=== PATIENT | male | born 1995 | race Caucasian/White ===

== ENCOUNTER 2016-09-12 16:00 | Inpatient (IN) | payer MEDICAID, OTHER ==
[~2016-09-12] VITALS: Ht 175.3 cm; Wt 106.1 kg
[~2016-09-12 16:00] MED LIST: ABIL15TA PO; SERT-141 PO; TRIL600T PO; VITA500047 PO
[2016-09-12 17:34] LABS: ALBUMIN 4.2 GM/DL (3.2-5.2); ALBUMIN/GLOBULIN RATIO 1.05 (1.00-1.93); ALKALINE PHOSPHATASE 184 U/L (45-117); ALT/SGPT 26 U/L (12-78); ANION GAP 12 MEQ/L (8-16); AST/SGOT 22 U/L (15-37); BILIRUBIN,DIRECT < 0.1 MG/DL (0.0-0.2); BILIRUBIN,TOTAL 0.2 MG/DL (0.2-1.0); BLOOD UREA NITROGEN 21 MG/DL (7-18); CALCIUM LEVEL 9.2 MG/DL (8.5-10.1); CARBON DIOXIDE LEVEL 26 MEQ/L (21-32); CHLORIDE LEVEL 102 MEQ/L (98-107); CREATININE FOR GFR 0.78 MG/DL (0.70-1.30); GLOMERULAR FILTRATION RATE > 60.0 (>60); GLUCOSE, FASTING 95 MG/DL (70-105); POTASSIUM SERUM 3.9 MEQ/L (3.5-5.1); SODIUM LEVEL 140 MEQ/L (136-145); TOTAL PROTEIN 8.2 GM/DL (6.4-8.2)
[2016-09-12 17:40] LABS: MEAN CORPUSCULAR VOLUME 81.9 fl (80.0-96.0); RED CELL DISTRIBUTION WIDTH 14.5 % (11.5-14.5); WHITE BLOOD COUNT 7.6 K/mm3 (4.0-10.0)
[2016-09-12 18:44] LABS: AMPHETAMINES LEVEL URINE NEGATIVE (NEGATIVE); BENZODIAZEPINES URINE NEGATIVE (NEGATIVE); COCAINE METABOLITE URINE NEGATIVE (NEGATIVE); CONTROL LINE INT CTR LINE PRESENT; METHADONE URINE NEGATIVE (NEGATIVE); OPIATES URINE NEGATIVE (NEGATIVE); TRICYCLIC ANTIDEPRESS URINE NEGATIVE (NEGATIVE)
[2016-09-12] MEDS ORDERED: TRIL1TAB PO (20:21)
[2016-09-12] MEDS ORDERED: ABIL15TA2 PO (20:21)
[2016-09-12] MEDS ORDERED: ZOLO50TA PO (20:21)
--- NOTE | 2016-09-12 21:45 | EDDOCDS ---
Nurse's Notes [facility] Name: Efrain Bell Age: 20 yrs Sex: Male : 1995 Arrival Date: 09/12/2016 Time: 16:[address] MD: Diagnosis: Major depressive disorder, recurrent, moderate;Suicidal ideations Presentation: 09/12 16:18 Presenting complaint: Patient states: brought in by PD on last picker order - had an pml argument with his girlfriend over a laptop and held a knife to his wrist and was punching himself. threw knife across room with PD arrived (away from officers). denies SI now. Mental Health Triage Level: Level 2: The patient displays active suicidal ideations. The patient was brought to the ED for evaluation because of a legal pickup order. Adult Sepsis Screening: The patient does not have new or worsening altered mentation. Patient's respiratory rate is less than 22. Systolic blood pressure is greater than 100. Patient has a qSOFA score of 0- Negative Sepsis Screen. Mental Health Triage Level: Level 2: The patient displays active suicidal ideations. The patient was brought to the ED for evaluation because of a legal pickup order. Suicide/Homicide risk assessment- The patient admits to and/or has been reported to be having suicidal ideations. The patient reports that he/she has not been admitted to an inpatient mental health facility in the last 30 days. The patient reports that he/she does not have a recent or current history of substance abuse. The patient reports that he/she has no prior history of suicide attempt and/or organized plan. The patient reports that he/she has not experienced a significant life altering event in the last 30 days. The patient reports that he/she has adequate social support. The patient reports he/she has no significant chronic medical condition(s). 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 Transition of care: patient was not received from another setting of care. 16:18 Acuity: ANGELO Level 3 pml 16:18 Method Of Arrival: Walkin/Carried/Asstd pml Triage Assessment: 16:21 General: Appears in no apparent distress, comfortable, Behavior is appropriate for age, pml cooperative. Pain: Denies pain. HIV screening NA for this visit Offered previously. The patient is triaged at the bedside. See Assessment in Nurses Notes section of ED record. Neurological: Level of Consciousness is awake, alert, Oriented to person, place, time. Cardiovascular: Capillary refill < 3 seconds. Respiratory: Airway is patent Respiratory effort is even, unlabored. GI: Abdomen is non- distended obese. Derm: Skin is pink, warm & dry. Historical: - Allergies: no known allergies; - Home Meds: 1. Abilify 15 mg Oral tab 1 tab nightly 2. Trileptal oral 450mg oral 2 times per day 3. Zoloft 50 mg Oral tab 1 tab once daily - PMHx: Anxiety; Depression; mood disorder; - PSHx: none; - Social history: Smoking status: Patient states was never smoker of tobacco. No barriers to communication noted, The patient speaks fluent Greenlandic, Speaks appropriately for age. - Family history: Not pertinent. - : The pt / caregiver states he / she is not on anticoagulants. Home medication list is obtained from the patient. - Exposure Risk Screening:: None identified. Screenin:56 Screening information is obtained from the patient. Fall risk: No risks identified. pml Assistance ADL's: requires no assistance with activities of daily living. Abuse/DV Screen: The patient / caregiver reports he/she is: not in a situation that causes fear, pain or injury. Nutritional screening: No deficits noted. Advance Directives: Currently, there is no health care proxy. home support is adequate. Assessment: 16:56 General: Appears in no apparent distress, comfortable, Behavior is appropriate for age, pml cooperative. Pain: Denies pain. Neurological: Level of Consciousness is awake, alert, Oriented to person, place, time. Cardiovascular: Capillary refill < 3 seconds. Respiratory: Airway is patent Respiratory effort is even, unlabored. Derm: Skin is pink, warm & dry. 18:37 General: Resting on stretcher, resps easy and unlabored, skin p/w/d. pml 19:04 General: Verbal report given by Angella Umaña RN. Assumed care of patient at this time.. kas2 19:30 General: Appears in no apparent distress, comfortable, Behavior is appropriate for age, kas2 cooperative. Pain: Denies pain. Neurological: Level of Consciousness is awake, alert, Oriented to person, place, time. Cardiovascular: Capillary refill < 3 seconds Rhythm is regular. Respiratory: Airway is patent Respiratory effort is even, unlabored, Breath sounds are clear. Derm: Skin is intact, Skin is dry, Skin is pink, warm & dry. Skin temperature is warm. Mental Health Eval: 18:55 Mental health consult is initiated at 18:55. Status: The patient is not a cs seafood and service meat manager or dependent. [facility] Behavioral Health: The patient is not an established patient of [facility] Behavioral Health. Referral Information: Evaluation referral is generated by a police agency: [facility] Tavo Rader, #[id number] on a 9:41. The patient was referred for evaluation because Pt reports he was upset today arguing about weather to sell the lap top or not, with his GF of 3 years Zainab Davidson [phone], and became upset, they were walking outside, he threatened to kill himself, was crying, he pulled his pocket knife out, held it to his arm, then threw the knife in the snow bank. Zainab was afraid he was going to kill himself, her cousin called 911. Pt reports he has been very anxious and not sleeping at all, no change in eating at this time. Pt denies any illegal drug. 19:09 Referral Information: The patient was referred for evaluation because Pt reports he is cs very anxious, became angry, just came into his head to kill himself, stressors are no money, no more food stamps, and getting his GF to work, needs to sell the computer for clothing, is compliant with his medications and treatment, denies drug use, may have some in his system, lab show negative for cannabis, denies AH, or any thoughts of wanting to kill someone. Subjective: The patients chief complaint is Pt presented on a 9:41 depressed, threatening to kill himself with his pocket knife today on his arm, then threw it into the snow bank so he would not do it, per GF. Pt reports anxiety, depression, frustration, poor sleep habits at this time, sees his therapist every 3 weeks and PA at [facility] Sil Chavez every 2 months, GF confirms . Delusions are denied. Patient's mood is anxious, depressed, hopeless, Hallucinations are denied. Mental Health history: anxiety, Conduct Disorder, depression, sleep disturbance, suicide ideation Pt reports he has never made an attempt, "always has thoughts, last time was 1 year ago Mental Health Admissions: [facility] 09/22/13 Current Outpatient Mental Health Services: Psychiatrist / Agency: none sees NEVILLE Chavez at [facility]. Therapist / Agency: Luis DIAZ. Current living environment is Family / Home Support: Father, mother GF and his sister The patient is single. Patient presents to Emergency Department with the following symptoms within the past 2 weeks: agitation, anxiety, depressed mood, feelings of helplessness/hopelessness, poor concentration, poor impulse control, relational problem, sleep disturbance - insomnia, suicidal ideation with attempt/gesture by cutting. Substance abuse: Pt denies. Mental status exam: Patients appearance is disheveled Patient's behavior is agitated, Speech is mumbled. pressured. Affect is blunted flat. tearful, anxiuos. Mood is anxious. depressed. fearful. Hallucinations are denied. Appetite is normal. Memory is poor. Energy level is tires easily. Content of thought is normal. Thought process is intact. Cognitive level is oriented to person, place, time and situation Patient's insight is poor. Judgement is poor. Rapport with interviewer is good. Suicidal Ideation present with a plan to kill self by cutting. Homicidal ideation is not present. Disposition: Medically cleared for disposition by Matias Maki MD Psychiatric Consult is performed by phone with Dr Adriana Greene. [facility] Admission Criteria: The patient is experiencing suicidal ideation. The patient requires continuous observation and/or control to protect self, others or property. The patient's care requires a multi-modal treatment plan under close supervision and coordination due to the complexity and severity of the patient's symptoms. The patient requires administration and monitoring of psychoactive medications by skilled medical providers due to the side effects of the psychoactive medications or significant dosage adjustments. Legal Status: Patient's legal status will be Emergency admission: . [place] Safe Act: [place] Safe Act is applicable to this patient. The patient poses a risk to self or other and the Nursing State Wildlife Officer has been notified. He/She will enter the patient's data. DSM-V Differential Diagnosis: Unspecified Depressive Disorder (F32.9). Insurance Pre-Certification: Not Required. Pt states preferred pharmacy is: [facility] in [facility]. Vital Signs: 16:21 Weight 104.33 kg; Height 5 ft. 9 in. (175.26 cm); Pain 0/10; pml 17:13 BP 153 / 91; Pulse 108; Resp 18; Temp 96.9(T); Pulse Ox 100% on R/A; pjf 21:30 BP 152 / 93; Pulse 89; Resp 20; Temp 97.4; Pulse Ox 98% ; Pain 0/10; mas 16:21 Body Mass Index 33.96 (104.33 kg, 175.26 cm) [facility] Vitals: 16:21 Log In time N/A- police car arrival. [facility] ED Course: 16:02 Patient visited by Sharon Koenig PCA. elp 16:02 Tavo Cantor, RN is Primary Nurse. elp 16:02 Angella Umaña,MUNDO is Primary Nurse. elp 16:02 Patient moved to Waiting elp 16:02 Patient moved to [facility] elp 16:04 Nikky Salas MD is Attending Physician. sd1 16:04 Patient visited by Nikky Salas MD. sd1 16:16 Attending Physician role handed off by Nikky Salas MD cs11 16:16 Bentley Polo DO is Attending Physician. cs11 16:19 Triage Initiated pml 16:20 Patient visited by Stoney Boykin Security Aide. pjf 16:22 Patient visited by Angella Umaña,MUNDO. pml 16:22 Pt greeted and oriented to ED. Patient advised of names of staff involved in care, pjf location of call jaramillo, wait times and NPO status. Accompanied by Law Enforcement, [facility] (9.41), Patient has correct armband on for positive identification. Placed in psych safe attire. Bed in low position. Call light in reach. Side rails up X 1. Security observing. Property removed, secured in belongings bag- Placed in locker #2. Door closed. Noise minimized. Visitors limited. Report received from rn - psych. triage level #2,+si, cooperative \\T\\ this time. The patient / caregiver is instructed regarding the plan of care and ED course. Psych Safety Check: Location: Psych Room. 16:49 [facility] Payment Agreement was scanned into [employer] and attached to record. zo 16:52 Patient visited by Stoney Boykin Security Aide. pjf 16:56 No IV's were initiated during this patient's visit. No procedures done that require pml assistance. Labs drawn. (by ED staff). Sent per order to lab. 17:11 Patient visited by Stoney Boykin Security Aide. pjf 17:14 Patient visited by Stoney Boykin Security Aide. pjf 17:41 Patient visited by Angella Umaña RN. pml 17:57 Patient visited by Angella Umaña,MUNDO. pml 18:10 Patient visited by Stoney Boykin Security Aide. pjf 18:29 Patient visited by Stoney Boykin Security Aide. pjf 18:29 Primary Nurse role handed off by Tavo Cantor RN mcp 18:37 Patient visited by Angella Umaña RN. pml 18:45 Patient visited by Stoney Boykin Security Aide. pjf 18:54 [facility] Legal paperwork was scanned into [employer] and attached to record. cs 19:00 Patient visited by Stoney Boykin Security Aide. pjf 19:04 Patient visited by Sil Manuel RN. kas2 19:09 [facility] Legal paperwork was scanned into [employer] and attached to record. cs 19:13 Patient visited by Stoney Boykin Security Aide. pjf 19:22 Attending Physician role handed off by Bentley Polo DO pc 19:22 Matias Maki MD is Attending Physician. pc 19:23 Adriana Greene is Hospitalizing Provider. pc 19:27 Patient visited by Stoney Boykin Security Aide. pjf 19:51 Patient visited by Valeriano Mora. mas 20:05 Patient visited by Valeriano Mora. mas 20:19 Patient visited by Valeriano Mora. mas 20:30 Patient visited by Valeriano Mora. mas 20:56 Patient visited by Adan Ingram PCA. jmv 21:00 Patient visited by Adan Ingram PCA. jmv 21:15 Patient visited by Valeriano Mora. mas 21:16 Patient visited by Sil Manuel RN. kas2 21:40 Primary Nurse role handed off by Angella Umaña RN eduard Attachments: 18:54 [facility] Legal paperwork cs 19:09 M[facility] Legal paperwork cs Order Results: Lab Order: Acetaminophen Level; SPEC'M 09/12/16 16:49 Test: ACETAMINOPHEN LEVEL; Value: < 2.0; Range: 10.0-30.0; Abnormal: Below low normal; Units: UG/ML; Status: F Lab Order: Basic Metabolic Profile; [facility]09/12/16 16:49 Test: GLUCOSE, FASTING; Value: 95; Range: 70-105; Units: MG/DL; Status: F Test: BLOOD UREA NITROGEN; Value: 21; Range: 7-18; Abnormal: Above high normal; Units: MG/DL; Status: F Test: CREATININE FOR GFR; Value: 0.78; Range: 0.70-1.30; Units: MG/DL; Status: F Test: GLOMERULAR FILTRATION RATE; Value: > 60.0; Range: >60; Status: F Test: SODIUM LEVEL; Value: 140; Range: 136-145; Units: MEQ/L; Status: F Test: POTASSIUM SERUM; Value: 3.9; Range: 3.5-5.1; Units: MEQ/L; Status: F Test: CHLORIDE LEVEL; Value: 102; Range: 98-107; Units: MEQ/L; Status: F Test: CARBON DIOXIDE LEVEL; Value: 26; Range: 21-32; Units: MEQ/L; Status: F Test: ANION GAP; Value: 12; Range: 8-16; Units: MEQ/L; Status: F Test: CALCIUM LEVEL; Value: 9.2; Range: 8.5-10.1; Units: MG/DL; Status: F Test Note: ; Units are mL/min/1.73 m2 Chronic Kidney Disease Staging per NKF: Stage I & II GFR >=60 Normal to Mildly Decreased Stage III GFR 30-59 Moderately Decreased Stage IV GFR 15-29 Severely Decreased Stage V GFR <15 Very Little GFR Left ESRD GFR <15 on SPONGE BUFFER Lab Order: Complete Blood Count; [facility]09/12/16 16:49 Test: WHITE BLOOD COUNT; Value: 7.6; Range: 4.0-10.0; Units: K/mm3; Status: F Test: RED BLOOD COUNT; Value: 5.09; Range: 4.30-6.10; Units: M/mm3; Status: F Test: HEMOGLOBIN; Value: 13.7; Range: 14.0-18.0; Abnormal: Below low normal; Units: g/dl; Status: F Test: HEMATOCRIT; Value: 41.7; Range: 42.0-52.0; Abnormal: Below low normal; Units: %; Status: F Test: MEAN CORPUSCULAR VOLUME; Value: 81.9; Range: 80.0-96.0; Units: fl; Status: F Test: MEAN CORPUSCULAR HEMOGLOBIN; Value: 27.0; Range: 27.0-33.0; Units: pg; Status: F Test: MEAN CORPUSCULAR HGB CONC; Value: 33.0; Range: 32.0-36.5; Units: g/dl; Status: F Test: RED CELL DISTRIBUTION WIDTH; Value: 14.5; Range: 11.5-14.5; Units: %; Status: F Test: PLATELET COUNT, AUTOMATED; Value: 231; Range: 150-450; Units: k/mm3; Status: F Lab Order: Drug Eval Toxicology ED Only; SPEC'M 09/12/16 18:26 Test: AMPHETAMINES LEVEL URINE; Value: NEGATIVE; Range: NEGATIVE; Status: F Test: BARBITURATES URINE; Value: NEGATIVE; Range: NEGATIVE; Status: F Test: BENZODIAZEPINES URINE; Value: NEGATIVE; Range: NEGATIVE; Status: F Test: CANNABINOIDS URINE; Value: NEGATIVE; Range: NEGATIVE; Status: F Test: COCAINE METABOLITE URINE; Value: NEGATIVE; Range: NEGATIVE; Status: F Test: METHADONE URINE; Value: NEGATIVE; Range: NEGATIVE; Status: F Test: OPIATES URINE; Value: NEGATIVE; Range: NEGATIVE; Status: F Test: TRICYCLIC ANTIDEPRESS URINE; Value: NEGATIVE; Range: NEGATIVE; Status: F Test Note: ; ALL PRESUMPTIVE POSITIVE FINDINGS ARE UNCONFIRMED NORMAL VALUES THRESHOLD IN NG/ML AMPHETAMINES 1000 METHAMPHETAMINES 1000 BARBITURATES 300 BENZODIAZEPINES 300 CANNABINOIDS (THC) 50 COCAINE METABOLITE 300 METHADONE 300 OPIATES 300 PHENCYCLIDINE 25 TRICYCLIC ANTIDEPRESSANTS 1000 RESULTS ARE FOR MEDICAL PURPOSES ONLY. ALL URINE SPECIMENS WILL BE SAVED FOR 3 DAYS. IF CONFIRMATION OF A PRESUMPTIVE POSTIVE SCREEN RESULT IS DESIRED, CALL CHEMISTRY ([phone]) AND REQUEST URINE TO BE SENT TO REFERENCE LAB. FOR A LIST OF CLOSELY RELATED COMPOUNDS PLEASE CALL THE LAB. Lab Order: Ethyl Alcohol (ethanol); SPEC'M 09/12/16 16:49 Test: ETHYL ALCOHOL (ETHANOL); Value: < 0.003; Range: 0.000-0.010; Units: %; Status: F Lab Order: Liver Profile; SPEC'M 09/12/16 16:49 Test: AST/SGOT; Value: 22; Range: 15-37; Units: U/L; Status: F Test: ALT/SGPT; Value: 26; Range: 12-78; Units: U/L; Status: F Test: ALKALINE PHOSPHATASE; Value: 184; Range: 45-117; Abnormal: Above high normal; Units: U/L; Status: F Test: BILIRUBIN,TOTAL; Value: 0.2; Range: 0.2-1.0; Units: MG/DL; Status: F Test: BILIRUBIN,DIRECT; Value: < 0.1; Range: 0.0-0.2; Units: MG/DL; Status: F Test: TOTAL PROTEIN; Value: 8.2; Range: 6.4-8.2; Units: GM/DL; Status: F Test: ALBUMIN; Value: 4.2; Range: 3.2-5.2; Units: GM/DL; Status: F Test: ALBUMIN/GLOBULIN RATIO; Value: 1.05; Range: 1.00-1.93; Status: F Lab Order: Salicylate Level; SPEC'M 09/12/16 16:49 Test: SALICYLATE LEVEL; Value: 2.0; Range: 5.0-30.0; Abnormal: Below low normal; Units: MG/DL; Status: F Lab Order: Thyroid Stimulating Hormone; SPEC'M 09/12/16 16:49 Test: THYROID STIMULATING HORMONE; Value: 1.440; Range: 0.358-3.740; Units: uIU/ML; Status: F Outcome: 19:24 Decision to Hospitalize by Provider. pc 21:44 Patient left the ED. sls1 Signatures: Matias Maki MD MD pc Delaney-Rowland, Sarah, MD MD sd1 Lynn Isabel RN RN Guerrero Osorio PSA PSA Stoney Steiner Security Aide Securpjf Olin, Zoeann zo Spaulding, Marcus mas Ewald, Destiny, SENIOR PRODUCT INTEGRITY ENGINEER SENIOR PRODUCT INTEGRITY ENGINEER Armida Sahu RN RN sls1 Angella Umaña RN RN pml Schiff, Craig, DO DO cs11 Sharon Koenig SENIOR PRODUCT INTEGRITY ENGINEER SENIOR PRODUCT INTEGRITY ENGINEER elp Sil Manuel,RN RN kas2 Adan Ingram, SENIOR PRODUCT INTEGRITY ENGINEER SENIOR PRODUCT INTEGRITY ENGINEER jmv MTDD
--- NOTE | 2016-09-12 21:45 | EDDOCDS ---
Physician Documentation [facility] Name: Efrain Bell Age: 20 yrs Sex: Male : 1995 Arrival Date: 09/12/2016 Time: 16:00 Bed U2 Private MD: Disposition: 09/12 19:22 Critical Care: Critical care not applicable. pc Disposition: 09/12/16 19:24 Hospitalization ordered by Adriana Greene for Inpatient Admission. Preliminary diagnosis are Major depressive disorder, recurrent, moderate, Suicidal ideations. - Bed requested for Admit. - Status is Inpatient Admission. sls1 - Condition is Stable. - Problem is new. - Symptoms are unchanged. Historical: - Allergies: no known allergies; - Home Meds: 1. Abilify 15 mg Oral tab 1 tab nightly 2. Trileptal oral 450mg oral 2 times per day 3. Zoloft 50 mg Oral tab 1 tab once daily - PMHx: Anxiety; Depression; mood disorder; - PSHx: none; - Social history: Smoking status: Patient states was never smoker of tobacco. No barriers to communication noted, The patient speaks fluent [place], Speaks appropriately for age. - Family history: Not pertinent. - : The pt / caregiver states he / she is not on anticoagulants. Home medication list is obtained from the patient. - Exposure Risk Screening:: None identified. Vital Signs: 16:21 Weight 104.33 kg / 230.01 lbs; Height 5 ft. 9 in. (175.26 cm); Pain 0/10; pml 17:13 BP 153 / 91; Pulse 108; Resp 18; Temp 96.9(T); Pulse Ox 100% on R/A; pjf 21:30 BP 152 / 93; Pulse 89; Resp 20; Temp 97.4; Pulse Ox 98% ; Pain 0/10; mas 16:21 Body Mass Index 33.96 (104.33 kg, 175.26 cm) pml MDM: 16:05 Consult PFS/PSA/Oncology Technician ordered. sd1 16:05 Consult PFS/PSA/Oncology Technician: Patient's case requires discussion with on-call sd1 Psychiatrist ordered. 16:05 PSA/PFS to call Nursing Legal Support Manager, to enter patient data on [place] Safe Act if patient sd1 involuntarily admitted or transferred for SI or HI ordered. 16:05 Confirm accurate psychiatric medication list and times of last dosage ordered. sd1 16:05 Detain Pt Until Medically/PFS Cleared ordered. sd1 16:06 Acetaminophen Level Ordered. EDMS 16:06 Basic Metabolic Profile Ordered. EDMS 16:06 Complete Blood Count Ordered. EDMS 16:06 Drug Eval Toxicology ED Only Ordered. EDMS 16:06 Ethyl Alcohol (ethanol) Ordered. EDMS 16:06 Liver Profile Ordered. EDMS 16:06 Salicylate Level Ordered. EDMS 16:06 Thyroid Stimulating Hormone Ordered. EDMS 16:42 Financial registration complete. zo 16:49 [facility] Payment Agreement was scanned into [email or web address] and attached to record. zo 16:58 REGULAR DIET PLASTIC COOK+DIET ordered. EDMS 18:54 MHE Legal paperwork was scanned into [email or web address] and attached to record. cs 19:01 Admit to [facility]: ordered. EDMS 19:09 M[facility] Legal paperwork was scanned into [email or web address] and attached to record. cs 19:21 Consult PFS/PSA/Oncology Technician: Patient's case requires discussion with on-call cl Psychiatrist complete. 19:21 Consult PFS/PSA/Oncology Technician complete. cl 19:22 PSA/PFS to call Nursing Legal Support Manager, to enter patient data on [place] Safe Act if patient cl involuntarily admitted or transferred for SI or HI complete. 19:22 Acetaminophen Level Reviewed. pc 19:22 Basic Metabolic Profile Reviewed. pc 19:22 Complete Blood Count Reviewed. pc 19:22 Liver Profile Reviewed. pc 19:22 Salicylate Level Reviewed. pc 19:22 Drug Eval Toxicology ED Only Reviewed. pc 19:22 Ethyl Alcohol (ethanol) Reviewed. pc 19:22 Thyroid Stimulating Hormone Reviewed. pc 19:22 [place] Safe Act reporting: The patient poses a significant risk to self or others, and pc PSA/PFS has notified the Nursing Legal Support Manager and he/she will complete the required sql database programmer. The patient has been re-examined and re-evaluated. There is no appreciated change of the patient's symptoms at this time. Disposition: The historical points, examination findings, and any diagnostic results supporting the provided diagnosis, were discussed with the patient or legal guardian. The need for further work-up and/or treatment in the hospital was explained. Signatures: Dispatcher [employer] EDMS Matias Maki MD MD pc Delaney-Rowland, Sarah, MD MD sd1 Alexander Scott, PSA PSA cl Guerrero Tamez, PSA PSA cs Quique Tesfaye Shannon, RN RN sls1 Angella Umaña RN RN pml The chart was reviewed and I authenticate all verbal orders and agree with the evaluation and treatment provided.Attachments: 16:49 [facility] Payment Agreement zo MTDD
[2016-09-12 21:50] VITALS: BP 143/88
[2016-09-12] MEDS ORDERED: MAALOX 30 ML SUSP *UDC PO PRN (22:45)
[2016-09-12] MEDS ORDERED: traZODone 50 MG TAB PO PRN (22:45)
[2016-09-12] MEDS ORDERED: ACETAMINOPHEN TAB 650MG DOSE (2X325MG) PO PRN (22:45)
[2016-09-12] MEDS ORDERED: MOM 30ML SUSPENSION UDC PO PRN (22:45)
[2016-09-12] MEDS ORDERED: LORazepam 1 MG TAB PO PRN (23:00)
[2016-09-13 06:42] VITALS: BP 156/80
[2016-09-13] MEDS: SERTRALINE HCL 50 MG TAB PO SCH (08:07)
[2016-09-13] MEDS: OXcarbazepine 150 MG TAB PO SCH ×2 (08:07→20:59)
[2016-09-13 10:02] VITALS: BP 157/87
--- NOTE | 2016-09-13 12:17 | HPEPDOC ---
Medical History and Physical Date of Admission Sep 12, 2016 at 21:45 History and Physical PCP: None ATTENDING: Dr. Tavo Cunningham HPI: 20yoM admitted to [facility] for unspecified depressive disorder, being medically examined today. Pt has erythema surrounding his upper and lower eyelids bilaterally. he has been rubbing his eyes alot. he notes some itching of his eyes. He states what started it was that he was crying alot. He states mild warmth surrounding the eyes, clear drainage, no significant pain or swelling. Denies any fevers, chills, weakness, fatigue, [place], CP, SOB, cough, palpitations, abdominal pain, N/V/D or changes in bowel or bladder habits. PMHx: learning disability (states he graduated HS) Strabismus Left eye anxiety depression Mood disorder h/o Fe deficiency anemia PSHX: denies SOCHX: Resides in: [place], lives with mother Marital Status: single Kids: none Employment: unemployed Tobacco use: denies ETOH: denies Illicit Drugs: has used marijuana IV Drug Use: Denies Tattoos done unprofessionally: Denies FAMHX: Mother: Alive, well Father: Alive, h/o esophageal Ca Siblings: Alive, well Children: none Unexpected deaths due to medical reasons: None. ROS: As noted in HPI, otherwise 11pt ROS of systems reviewed and unremarkable. PE: GEN: 20yoF, appears stated age. Well-nourished, well developed. No acute distress. Alert and oriented x 3. Pleasant, interactive. HEENT: Normocephalic, atraumatic. There is mild warmth of the skin surrounding the eyes upper and lower b/l and the upper and lower eyelids with mild edema, mild TTP. clear drainage noted from the eyes. Mild TTP. Pupils are equal, round , and reactive to light. Extraocular movements are intact. No nystagmus appreciated. Sclera are nonicteric. Conjunctiva without injection. Nose midline. Nasal turbinates without bogginess. EACs both patent BL. TMs both visualized and [place] with good cone of light, no bulging or erythema. No facial asymmetry. Moist mucous membranes. Dentition fair. Pharynx pink and moist, no cobblestoning. Neck supple, trachea midline. No lymphadenopathy or thyromegaly appreciated. CHEST: Regular rate and rhythm, +S1, +S2 LUNGS: Clear to auscultation bilaterally. No wheezes, rales, or rhonchi. Breathing appears symmetric and easy. Patient is speaking in full sentences. No accessory muscle use. ABD: Round, soft, non-tender, non-distended. +Bowel sounds throughout. No rebound or guarding. No costovertebral angle tenderness. EXT: Pulses 2+ bilaterally dorsalis pedis and radial. No lower extremity edema appreciated. SKIN: [place], dry, warm. Capillary refill <2sec. No rashes. NEURO: Alert and oriented x 3. Cranial nerves III-XII are intact. No focal deficits appreciated. EKG: pending. A&P: 20yoM admitted to [facility] for unspecified depressive disorder 1. Psych. Plan per Psychiatry. Obtain baseline EKG to assure the safety of psychiatric medications as they can prolong the QT interval. 2. H/O Fe def anemia. Will recheck CBC in AM. Check Fe studies, B12/folate. 3. H/O Strabismus left eye. 4. Follow up. No Primary Care Provider. Will attempt to establish PCP on discharge. 5. Elevated BP. Low Na diet. Monitor trend. 6. Cellulitis- periorbital- Pt states he has been rubbing his eyes bilaterally and appears to have mild cellulitis b/l. Will initiate doxycycline 100mg po bid x 7 days. Monitor. Encouraged pt to stop rubbing and frequently touching his eyes. Eye and lid hygiene discussed. 7. Staff member present throughout exam, mack Hammond. Vital Signs Vital Signs Label Value Date Time Patient Temperature 97.8 degrees F 09/13/16 1002 Temperature Source Tympanic 09/13/16 1002 Pulse 104 09/13/16 1002 Respiratory Rate 18 bpm 09/13/16 0642 Blood Pressure Assessment 156/80 (105) 09/13/16 0642 Blood Pressure Assessment 157/87 (110) 09/13/16 1002 Laboratory Data Labs 24H Laboratory Tests 2 09/12/16 16:49: Acetaminophen Level < 2.0L, Aspartate Amino Transf (AST/SGOT) 22, Alanine Aminotransferase (ALT/SGPT) 26, Alkaline Phosphatase 184H, Total Bilirubin 0.2, Direct Bilirubin < 0.1, Albumin 4.2, Albumin/Globulin Ratio 1.05, Anion Gap 12, Calcium Level 9.2, Ethyl Alcohol Level < 0.003, Glomerular Filtration Rate > 60.0, Salicylates Level 2.0L, Thyroid Stimulating Hormone (TSH) 1.440, Total Protein 8.2 09/12/16 18:26: Urine Amphetamine Level NEGATIVE, Urine Benzodiazepines Screen NEGATIVE, Urine Cannabinoids NEGATIVE, Urine Cocaine Metabolite NEGATIVE, Urine Opiates Screen NEGATIVE, Urine Barbiturates, Qualitative NEGATIVE, Urine Methadone Screen NEGATIVE, Urine Tricyclic Antidepressants NEGATIVE CBC/BMP Laboratory Tests 09/12/16 16:49 Red Blood Count 5.09, Mean Corpuscular Volume 81.9, Mean Corpuscular Hemoglobin 27.0, Mean Corpuscular Hemoglobin Concent 33.0, Red Cell Distribution Width 14.5 Home Medications Scheduled Aripiprazole (Abilify) 15 Mg Tab 15 MG PO QHS Oxcarbazepine (Trileptal) 300 Mg Tab 450 MG PO BID Sertraline Hcl (Zoloft) 50 Mg Tab 50 MG PO DAILY Allergies Coded Allergies: No Known Allergies (Verified Allergy, Unknown, 12/10/04) Abby Chavez Sep 13, 2016 12:17
[2016-09-13 12:39] VITALS: BP 140/80
[2016-09-13] MEDS: DOXYCYCLINE HYCLATE 100 MG TAB PO SCH ×2 (13:05→20:59)
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
[2016-09-13] MEDS ORDERED: hydrOXYzine 50 MG TAB PO PRN (13:30)
--- NOTE | 2016-09-13 16:45 | ECGEPIP ---
Stationary ECG Study [facility] Test Date: 2016-09-13 Pat Name: JORDON ROQUE Department: Room: [place] [address] Gender: M Saw Repairer: BLAKE : 1995 Requested By: Abby Chavez Order Number: [id number] Reading MD: Angela Gonzalez Measurements Intervals [place] Rate: 99 P: 17 AL: 150 QRS: 11 QRSD: 85 T: 16 QT: 348 QTc: 447 Interpretive Statements SINUS RHYTHM Possible old IWMI similar to 09/21/13 Electronically Signed On 09-13-2016 16:45:24 EST by Angela Gonzalez
[2016-09-13 18:07] VITALS: BP 140/80
[2016-09-13] MEDS: ARIPiprazole 15 MG TAB (AbiLIFY) PO SCH (20:59)
[2016-09-14 07:07] VITALS: BP 125/59
[2016-09-14] MEDS: OXcarbazepine 150 MG TAB PO SCH ×2 (08:20→21:44)
[2016-09-14] MEDS: DOXYCYCLINE HYCLATE 100 MG TAB PO SCH ×2 (08:20→21:44)
[2016-09-14] MEDS: SERTRALINE HCL 50 MG TAB PO SCH (08:20)
[2016-09-14 09:28] LABS: MEAN CORPUSCULAR HEMOGLOBIN 26.8 pg (27.0-33.0); MEAN CORPUSCULAR HGB CONC 32.5 g/dl (32.0-36.5); MEAN CORPUSCULAR VOLUME 82.5 fl (80.0-96.0); RED CELL DISTRIBUTION WIDTH 14.4 % (11.5-14.5)
[2016-09-14 09:51] LABS: FERRITIN 20 NG/ML (26-388); PERCENT SATURATION 36.8 % (19.7-37.4); TOTAL IRON BINDING CAPACITY 413 UG/DL (250-450)
[2016-09-14 09:53] LABS: FOLATE > 24.0 NG/ML (>5.4); VITAMIN B12 LEVEL 1112 PG/ML (247-911)
[2016-09-14 12:00] VITALS: BP 115/54
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
[2016-09-14 18:00] VITALS: BP 122/60
[2016-09-14] MEDS: ARIPiprazole 15 MG TAB (AbiLIFY) PO SCH (21:44)
--- NOTE | 2016-09-14 22:44 | EDDOCDS ---
Physician Documentation [facility] Name: Efrain Bell Age: 20 yrs Sex: Male : 1995 Arrival Date: 09/12/2016 Time: 16:00 Bed U2 Private MD: Disposition: 09/12 19:22 Critical Care: Critical care not applicable. pc Disposition: 09/12/16 19:24 Hospitalization ordered by Adriana Greene for Inpatient Admission. Preliminary diagnosis are Major depressive disorder, recurrent, moderate, Suicidal ideations. - Bed requested for Admit. - Status is Inpatient Admission. sls1 - Condition is Stable. - Problem is new. - Symptoms are unchanged. Historical: - Allergies: no known allergies; - Home Meds: 1. Abilify 15 mg Oral tab 1 tab nightly 2. Trileptal oral 450mg oral 2 times per day 3. Zoloft 50 mg Oral tab 1 tab once daily - PMHx: Anxiety; Depression; mood disorder; - PSHx: none; - Social history: Smoking status: Patient states was never smoker of tobacco. No barriers to communication noted, The patient speaks fluent Estonian, Speaks appropriately for age. - Family history: Not pertinent. - : The pt / caregiver states he / she is not on anticoagulants. Home medication list is obtained from the patient. - Exposure Risk Screening:: None identified. Vital Signs: 16:21 Weight 104.33 kg / 230.01 lbs; Height 5 ft. 9 in. (175.26 cm); Pain 0/10; pml 17:13 BP 153 / 91; Pulse 108; Resp 18; Temp 96.9(T); Pulse Ox 100% on R/A; pjf 21:30 BP 152 / 93; Pulse 89; Resp 20; Temp 97.4; Pulse Ox 98% ; Pain 0/10; mas 16:21 Body Mass Index 33.96 (104.33 kg, 175.26 cm) pml MDM: 16:05 Consult PFS/PSA/Dehydrating Press Operator ordered. sd1 16:05 Consult PFS/PSA/Dehydrating Press Operator: Patient's case requires discussion with on-call sd1 Psychiatrist ordered. 16:05 PSA/PFS to call Nursing Drug Room Operator, to enter patient data on [place] Safe [place] if patient sd1 involuntarily admitted or transferred for SI or HI ordered. 16:05 Confirm accurate psychiatric medication list and times of last dosage ordered. sd1 16:05 Detain Pt Until Medically/PFS Cleared ordered. sd1 16:06 Acetaminophen Level Ordered. EDMS 16:06 Basic Metabolic Profile Ordered. EDMS 16:06 Complete Blood Count Ordered. EDMS 16:06 Drug Eval Toxicology ED Only Ordered. EDMS 16:06 Ethyl Alcohol (ethanol) Ordered. EDMS 16:06 Liver Profile Ordered. EDMS 16:06 Salicylate Level Ordered. EDMS 16:06 Thyroid Stimulating Hormone Ordered. EDMS 16:42 Financial registration complete. zo 16:49 [place]-[facility] Payment Agreement was scanned into Ringly and attached to record. zo 16:58 REGULAR DIET PLASTIC COOK+DIET ordered. EDMS 18:54 [facility] Legal paperwork was scanned into Ringly and attached to record. cs 19:01 Admit to [facility]: ordered. EDMS 19:09 [facility] Legal paperwork was scanned into Ringly and attached to record. cs 19:21 Consult PFS/PSA/Dehydrating Press Operator: Patient's case requires discussion with on-call cl Psychiatrist complete. 19:21 Consult PFS/PSA/Dehydrating Press Operator complete. cl 19:22 PSA/PFS to call Nursing Drug Room Operator, to enter [place] data [place] if patient cl involuntarily admitted or transferred for SI or HI complete. 19:22 Acetaminophen Level Reviewed. pc 19:22 Basic Metabolic Profile Reviewed. pc 19:22 Complete Blood Count Reviewed. pc 19:22 Liver Profile Reviewed. pc 19:22 Salicylate Level Reviewed. pc 19:22 Drug Eval Toxicology ED Only Reviewed. pc 19:22 Ethyl Alcohol (ethanol) Reviewed. pc 19:22 Thyroid Stimulating Hormone Reviewed. pc 19:22 [place] Safe Act reporting: The patient poses a significant risk to self or others, and pc PSA/PFS has notified the Nursing Drug Room Operator and he/she will complete the required database marketing specialist. The patient has been re-examined and re-evaluated. There is no appreciated change of the patient's symptoms at this time. Disposition: The historical points, examination findings, and any diagnostic results supporting the provided diagnosis, were discussed with the patient or legal guardian. The need for further work-up and/or treatment in the hospital was explained. 09/13 10:53 T-Sheet-- Draft Copy was scanned into Ringly and attached to record. gb Signatures: Dispatcher [employer]Systems Matias Maki MD MD pc Delaney-Rowland, Sarah, MD MD sd1 Tyler, Alexander, PSA PSA cl Guerrero Tamez, PSA PSA cs Belia Sierra, Reg Reg gb Quique Tesfaye Shannon, RN RN sls1 Angella Umaña RN RN pml The chart was reviewed and I authenticate all verbal orders and agree with the evaluation and treatment provided.Attachments: 09/12 16:49 [place]-[facility] Payment Agreement zo 09/13 10:53 T-Sheet-- Draft Copy gb Chart Complete MTDD
--- NOTE | 2016-09-14 22:45 | EDDOCDS ---
Physician Documentation [facility] Name: Efrain Bell Age: 20 yrs Sex: Male : 1995 Arrival Date: 09/12/2016 Time: 16:00 Bed U2 Private MD: Disposition: 09/12 19:22 Critical Care: Critical care not applicable. pc Disposition: 09/12/16 19:24 Hospitalization ordered by Adriana Greene for Inpatient Admission. Preliminary diagnosis are Major depressive disorder, recurrent, moderate, Suicidal ideations. - Bed requested for Admit. - Status is Inpatient Admission. sls1 - Condition is Stable. - Problem is new. - Symptoms are unchanged. Historical: - Allergies: no known allergies; - Home Meds: 1. Abilify 15 mg Oral tab 1 tab nightly 2. Trileptal oral 450mg oral 2 times per day 3. Zoloft 50 mg Oral tab 1 tab once daily - PMHx: Anxiety; Depression; mood disorder; - PSHx: none; - Social history: Smoking status: Patient states was never smoker of tobacco. No barriers to communication noted, The patient speaks fluent Kinyarwanda, Speaks appropriately for age. - Family history: Not pertinent. - : The pt / caregiver states he / she is not on anticoagulants. Home medication list is obtained from the patient. - Exposure Risk Screening:: None identified. Vital Signs: 16:21 Weight 104.33 kg / 230.01 lbs; Height 5 ft. 9 in. (175.26 cm); Pain 0/10; pml 17:13 BP 153 / 91; Pulse 108; Resp 18; Temp 96.9(T); Pulse Ox 100% on R/A; pjf 21:30 BP 152 / 93; Pulse 89; Resp 20; Temp 97.4; Pulse Ox 98% ; Pain 0/10; mas 16:21 Body Mass Index 33.96 (104.33 kg, 175.26 cm) pml MDM: 16:05 Consult PFS/PSA/Guide Alpine ordered. sd1 16:05 Consult PFS/PSA/Guide Alpine: Patient's case requires discussion with on-call sd1 Psychiatrist ordered. 16:05 PSA/PFS to call Nursing School Manager, to [place] data [place] if patient sd1 involuntarily admitted or transferred for SI or HI ordered. 16:05 Confirm accurate psychiatric medication list and times of last dosage ordered. sd1 16:05 Detain Pt Until Medically/PFS Cleared ordered. sd1 16:06 Acetaminophen Level Ordered. EDMS 16:06 Basic Metabolic Profile Ordered. EDMS 16:06 Complete Blood Count Ordered. EDMS 16:06 Drug Eval Toxicology ED Only Ordered. EDMS 16:06 Ethyl Alcohol (ethanol) Ordered. EDMS 16:06 Liver Profile Ordered. EDMS 16:06 Salicylate Level Ordered. EDMS 16:06 Thyroid Stimulating Hormone Ordered. EDMS 16:42 Financial registration complete. zo 16:49 [place]-[facility] Payment Agreement was scanned into Focus and attached to record. zo 16:58 REGULAR DIET PLASTIC COOK+DIET ordered. EDMS 18:54 [facility] Legal paperwork was scanned into Focus and attached to record. cs 19:01 Admit to [facility]: ordered. EDMS 19:09 [facility] Legal paperwork was scanned into Focus and attached to record. cs 19:21 Consult PFS/PSA/Guide Alpine: Patient's case requires discussion with on-call cl Psychiatrist complete. 19:21 Consult PFS/PSA/Guide Alpine complete. cl 19:22 PSA/PFS to call Nursing School Manager, to [place] if patient cl involuntarily admitted or transferred for SI or HI complete. 19:22 Acetaminophen Level Reviewed. pc 19:22 Basic Metabolic Profile Reviewed. pc 19:22 Complete Blood Count Reviewed. pc 19:22 Liver Profile Reviewed. pc 19:22 Salicylate Level Reviewed. pc 19:22 Drug Eval Toxicology ED Only Reviewed. pc 19:22 Ethyl Alcohol (ethanol) Reviewed. pc 19:22 Thyroid Stimulating Hormone Reviewed. pc 19:22 [place] Safe [place] reporting: The patient poses a significant risk to self or others, and pc PSA/PFS has notified the Nursing School Manager and he/she will complete the required data management consultant. The patient has been re-examined and re-evaluated. There is no appreciated change of the patient's symptoms at this time. Disposition: The historical points, examination findings, and any diagnostic results supporting the provided diagnosis, were discussed with the patient or legal guardian. The need for further work-up and/or treatment in the hospital was explained. 09/13 10:53 T-Sheet-- Draft Copy was scanned into Focus and attached to record. gb Signatures: Dispatcher [employer] EDTongda Matias Maki MD MD pc Delaney-Rowland, Sarah, MD MD sd1 Tyler, Alexander, PSA PSA cl Guerrero Tamez, PSA PSA cs Belia Sierra, Reg Reg gb Quique Tesfaye Shannon, RN RN sls1 Angella Umaña RN RN pml The chart was reviewed and I authenticate all verbal orders and agree with the evaluation and treatment provided.Attachments: 09/12 16:49 [place] Payment Agreement zo 09/13 10:53 T-Sheet-- Draft Copy gb Chart Complete MTDD
--- NOTE | 2016-09-14 22:45 | EDDOCDS ---
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 threw knife across room with PD arrived (away from officers). denies SI now. Mental Health Triage Level: Level 2: The patient displays active suicidal ideations. The patient was brought to the ED for evaluation because of a legal pickup order. Adult Sepsis Screening: The patient does not have new or worsening altered mentation. Patient's respiratory rate is less than 22. Systolic blood pressure is greater than 100. Patient has a qSOFA score of 0- Negative Sepsis Screen. Mental Health Triage Level: Level 2: The patient displays active suicidal ideations. The patient was brought to the ED for evaluation because of a legal pickup order. Suicide/Homicide risk assessment- The patient admits to and/or has been reported to be having suicidal ideations. The patient reports that he/she has not been admitted to an inpatient mental health facility in the last 30 days. The patient reports that he/she does not have a recent or current history of substance abuse. The patient reports that he/she has no prior history of suicide attempt and/or organized plan. The patient reports that he/she has not experienced a significant life altering event in the last 30 days. The patient reports that he/she has adequate social support. The patient reports he/she has no significant chronic medical condition(s). Status: Patient is not a ward service supervisor or dependent. Transition of care: patient was not received from another setting of care. 16:18 Acuity: ANGELO Level 3 pml 16:18 Method Of Arrival: Walkin/Carried/Asstd pml Triage Assessment: 16:21 General: Appears in no apparent distress, comfortable, Behavior is appropriate for age, pml cooperative. Pain: Denies pain. HIV screening NA for this visit Offered previously. The patient is triaged at the bedside. See Assessment in Nurses Notes section of ED record. Neurological: Level of Consciousness is awake, alert, Oriented to person, place, time. Cardiovascular: Capillary refill < 3 seconds. Respiratory: Airway is patent Respiratory effort is even, unlabored. GI: Abdomen is non- distended obese. Derm: Skin is pink, warm & dry. Historical: - Allergies: no known allergies; - Home Meds: 1. Abilify 15 mg Oral tab 1 tab nightly 2. Trileptal oral 450mg oral 2 times per day 3. Zoloft 50 mg Oral tab 1 tab once daily - PMHx: Anxiety; Depression; mood disorder; - PSHx: none; - Social history: Smoking status: Patient states was never smoker of tobacco. No barriers to communication noted, The patient speaks fluent Croatian, Speaks appropriately for age. - Family history: Not pertinent. - : The pt / caregiver states he / she is not on anticoagulants. Home medication list is obtained from the patient. - Exposure Risk Screening:: None identified. Screenin:56 Screening information is obtained from the patient. Fall risk: No risks identified. pml Assistance ADL's: requires no assistance with activities of daily living. Abuse/DV Screen: The patient / caregiver reports he/she is: not in a situation that causes fear, pain or injury. Nutritional screening: No deficits noted. Advance Directives: Currently, there is no health care proxy. home support is adequate. Assessment: 16:56 General: Appears in no apparent distress, comfortable, Behavior is appropriate for age, pml cooperative. Pain: Denies pain. Neurological: Level of Consciousness is awake, alert, Oriented to person, place, time. Cardiovascular: Capillary refill < 3 seconds. Respiratory: Airway is patent Respiratory effort is even, unlabored. Derm: Skin is pink, warm & dry. 18:37 General: Resting on stretcher, resps easy and unlabored, skin p/w/d. pml 19:04 General: Verbal report given by Angella Umaña RN. Assumed care of patient at this time.. kas2 19:30 General: Appears in no apparent distress, comfortable, Behavior is appropriate for age, kas2 cooperative. Pain: Denies pain. Neurological: Level of Consciousness is awake, alert, Oriented to person, place, time. Cardiovascular: Capillary refill < 3 seconds Rhythm is regular. Respiratory: Airway is patent Respiratory effort is even, unlabored, Breath sounds are clear. Derm: Skin is intact, Skin is dry, Skin is pink, warm & dry. Skin temperature is warm. Mental Health Eval: 18:55 Mental health consult is initiated at 18:55. Status: The patient is not a cs ward service supervisor or dependent. [facility] Behavioral Health: The patient is not an established patient of [facility] Behavioral Health. Referral Information: Evaluation referral is generated by a police agency: [facility] Tavo Rader, #[id number] on a 9:41. The patient was referred for evaluation because Pt reports he was upset today arguing about weather to sell the lap top or not, with his GF of 3 years Zainab Davidson [phone], and became upset, they were walking outside, he threatened to kill himself, was crying, he pulled his pocket knife out, held it to his arm, then threw the knife in the snow bank. Zainab was afraid he was going to kill himself, her cousin called 911. Pt reports he has been very anxious and not sleeping at all, no change in eating at this time. Pt denies any illegal drug. 19:09 Referral Information: The patient was referred for evaluation because Pt reports he is cs very anxious, became angry, just came into his head to kill himself, stressors are no money, no more food stamps, and getting his GF to work, needs to sell the computer for clothing, is compliant with his medications and treatment, denies drug use, may have some in his system, lab show negative for cannabis, denies AH, or any thoughts of wanting to kill someone. Subjective: The patients chief complaint is Pt presented on a 9:41 depressed, threatening to kill himself with his pocket knife today on his arm, then threw it into the snow bank so he would not do it, per GF. Pt reports anxiety, depression, frustration, poor sleep habits at this time, sees his therapist every 3 weeks and PA at [facility] Sil Chavez every 2 months, GF confirms . Delusions are denied. Patient's mood is anxious, depressed, hopeless, Hallucinations are denied. Mental Health history: anxiety, Conduct Disorder, depression, sleep disturbance, suicide ideation Pt reports he has never made an attempt, "always has thoughts, last time was 1 year ago Mental Health Admissions: [facility] 09/22/13 Current Outpatient Mental Health Services: Psychiatrist / Agency: none sees NEVILLE Chavez at [facility]. Therapist / Agency: Luis DIAZ. Current living environment is Family / Home Support: Father, mother GF and his sister The patient is single. Patient presents to Emergency Department with the following symptoms within the past 2 weeks: agitation, anxiety, depressed mood, feelings of helplessness/hopelessness, poor concentration, poor impulse control, relational problem, sleep disturbance - insomnia, suicidal ideation with attempt/gesture by cutting. Substance abuse: Pt denies. Mental status exam: Patients appearance is disheveled Patient's behavior is agitated, Speech is mumbled. pressured. Affect is blunted flat. tearful, anxiuos. Mood is anxious. depressed. fearful. Hallucinations are denied. Appetite is normal. Memory is poor. Energy level is tires easily. Content of thought is normal. Thought process is intact. Cognitive level is oriented to person, place, time and situation Patient's insight is poor. Judgement is poor. Rapport with interviewer is good. Suicidal Ideation present with a plan to kill self by cutting. Homicidal ideation is not present. Disposition: Medically cleared for disposition by Matias Maki MD Psychiatric Consult is performed by phone with Dr Adriana Greene. [facility] Admission Criteria: The patient is experiencing suicidal ideation. The patient requires continuous observation and/or control to protect self, others or property. The patient's care requires a multi-modal treatment plan under close supervision and coordination due to the complexity and severity of the patient's symptoms. The patient requires administration and monitoring of psychoactive medications by skilled medical providers due to the side effects of the psychoactive medications or significant dosage adjustments. Legal Status: Patient's legal status will be Emergency admission: . MD Safe Act: [place] Safe Act is applicable to this patient. The patient poses a risk to self or other and the Nursing [employer] has been notified. He/She will enter the patient's data. DSM-V Differential Diagnosis: Unspecified Depressive Disorder (F32.9). Insurance Pre-Certification: Not Required. Pt states preferred pharmacy is: [facility] in [facility]. Vital Signs: 16:21 Weight 104.33 kg; Height 5 ft. 9 in. (175.26 cm); Pain 0/10; pml 17:13 BP 153 / 91; Pulse 108; Resp 18; Temp 96.9(T); Pulse Ox 100% on R/A; pjf 21:30 BP 152 / 93; Pulse 89; Resp 20; Temp 97.4; Pulse Ox 98% ; Pain 0/10; mas 16:21 Body Mass Index 33.96 (104.33 kg, 175.26 cm) [facility] Vitals: 16:21 Log In time N/A- police car arrival. [facility] ED Course: 16:02 Patient visited by Sharon Koenig PCA. elp 16:02 Tavo Cantor, RN is Primary Nurse. elp 16:02 Angella Umaña,MUNDO is Primary Nurse. elp 16:02 Patient moved to Waiting elp 16:02 Patient moved to [facility] elp 16:04 Nikky Salas MD is Attending Physician. sd1 16:04 Patient visited by Nikky Salas MD. sd1 16:16 Attending Physician role handed off by Nikky Salas MD cs11 16:16 Bentley Polo DO is Attending Physician. cs11 16:19 Triage Initiated pml 16:20 Patient visited by Stoney Boykin Security Aide. pjf 16:22 Patient visited by Angella Umaña,MUNDO. pml 16:22 Pt greeted and oriented to ED. Patient advised of names of staff involved in care, pjf location of call jaramillo, wait times and NPO status. Accompanied by Law Enforcement, [facility] (9.41), Patient has correct armband on for positive identification. Placed in psych safe attire. Bed in low position. Call light in reach. Side rails up X 1. Security observing. Property removed, secured in belongings bag- Placed in locker #2. Door closed. Noise minimized. Visitors limited. Report received from rn - psych. triage level #2,+si, cooperative \\T\\ this time. The patient / caregiver is instructed regarding the plan of care and ED course. Psych Safety Check: Location: Psych Room. 16:49 [facility] Payment Agreement was scanned into [email or web address] and attached to record. zo 16:52 Patient visited by Stoney Boykin Security Aide. pjf 16:56 No IV's were initiated during this patient's visit. No procedures done that require pml assistance. Labs drawn. (by ED staff). Sent per order to lab. 17:11 Patient visited by Stoney Boykin Security Aide. pjf 17:14 Patient visited by Stoney Boykin Security Aide. pjf 17:41 Patient visited by Angella Umaña,MUNDO. pml 17:57 Patient visited by Angella Umaña,MUNDO. pml 18:10 Patient visited by Stoney Boykin Security Aide. pjf 18:29 Patient visited by Stoney Boykin Security Aide. pjf 18:29 Primary Nurse role handed off by Tavo Cantor RN mcp 18:37 Patient visited by Angella Umaña RN. pml 18:45 Patient visited by Stoney Boykin Security Aide. pjf 18:54 [facility] Legal paperwork was scanned into [email or web address] and attached to record. cs 19:00 Patient visited by Stoney Boykin Security Aide. pjf 19:04 Patient visited by Sil Manuel RN. kas2 19:09 [facility] Legal paperwork was scanned into [email or web address] and attached to record. cs 19:13 Patient visited by Stoney Boykin Security Aide. pjf 19:22 Attending Physician role handed off by Bentley Polo DO pc 19:22 Matias Maki MD is Attending Physician. pc 19:23 Adriana Greene is Hospitalizing Provider. pc 19:27 Patient visited by Stoney Boykin Security Aide. pjf 19:51 Patient visited by Valeriano Mora. mas 20:05 Patient visited by Valeriano Mora. mas 20:19 Patient visited by Valeriano Mora. mas 20:30 Patient visited by Valeriano Mora. mas 20:56 Patient visited by Adan Ingram PCA. jmv 21:00 Patient visited by Adan Ingram PCA. jmv 21:15 Patient visited by Valeriano Mora. mas 21:16 Patient visited by Sil Manuel RN. kas2 21:40 Primary Nurse role handed off by Angella Umaña RN eduard 09/13 10:53 T-Sheet-- Draft Copy was scanned into [email or web address] and attached to record. gb Attachments: 18:54 [facility] Legal paperwork cs 19:09 [facility] Legal paperwork cs Order Results: Lab Order: Acetaminophen Level; SPEC 09/12/16 16:49 Test: ACETAMINOPHEN LEVEL; Value: < 2.0; Range: 10.0-30.0; Abnormal: Below low normal; Units: UG/ML; Status: F Lab Order: Basic Metabolic Profile; [facility] 09/12/16 16:49 Test: GLUCOSE, FASTING; Value: 95; Range: 70-105; Units: MG/DL; Status: F Test: BLOOD UREA NITROGEN; Value: 21; Range: 7-18; Abnormal: Above high normal; Units: MG/DL; Status: F Test: CREATININE FOR GFR; Value: 0.78; Range: 0.70-1.30; Units: MG/DL; Status: F Test: GLOMERULAR FILTRATION RATE; Value: > 60.0; Range: >60; Status: F Test: SODIUM LEVEL; Value: 140; Range: 136-145; Units: MEQ/L; Status: F Test: POTASSIUM SERUM; Value: 3.9; Range: 3.5-5.1; Units: MEQ/L; Status: F Test: CHLORIDE LEVEL; Value: 102; Range: 98-107; Units: MEQ/L; Status: F Test: CARBON DIOXIDE LEVEL; Value: 26; Range: 21-32; Units: MEQ/L; Status: F Test: ANION GAP; Value: 12; Range: 8-16; Units: MEQ/L; Status: F Test: CALCIUM LEVEL; Value: 9.2; Range: 8.5-10.1; Units: MG/DL; Status: F Test Note: ; Units are mL/min/1.73 m2 Chronic Kidney Disease Staging per NKF: Stage I & II GFR >=60 Normal to Mildly Decreased Stage III GFR 30-59 Moderately Decreased Stage IV GFR 15-29 Severely Decreased Stage V GFR <15 Very Little GFR Left ESRD GFR <15 on CLINICAL TRANSFORMATION SPECIALIST Lab Order: Complete Blood Count; [facility]09/12/16 16:49 Test: WHITE BLOOD COUNT; Value: 7.6; Range: 4.0-10.0; Units: K/mm3; Status: F Test: RED BLOOD COUNT; Value: 5.09; Range: 4.30-6.10; Units: M/mm3; Status: F Test: HEMOGLOBIN; Value: 13.7; Range: 14.0-18.0; Abnormal: Below low normal; Units: g/dl; Status: F Test: HEMATOCRIT; Value: 41.7; Range: 42.0-52.0; Abnormal: Below low normal; Units: %; Status: F Test: MEAN CORPUSCULAR VOLUME; Value: 81.9; Range: 80.0-96.0; Units: fl; Status: F Test: MEAN CORPUSCULAR HEMOGLOBIN; Value: 27.0; Range: 27.0-33.0; Units: pg; Status: F Test: MEAN CORPUSCULAR HGB CONC; Value: 33.0; Range: 32.0-36.5; Units: g/dl; Status: F Test: RED CELL DISTRIBUTION WIDTH; Value: 14.5; Range: 11.5-14.5; Units: %; Status: F Test: PLATELET COUNT, AUTOMATED; Value: 231; Range: 150-450; Units: k/mm3; Status: F Lab Order: Drug Eval Toxicology ED Only; SPEC'M 09/12/16 18:26 Test: AMPHETAMINES LEVEL URINE; Value: NEGATIVE; Range: NEGATIVE; Status: F Test: BARBITURATES URINE; Value: NEGATIVE; Range: NEGATIVE; Status: F Test: BENZODIAZEPINES URINE; Value: NEGATIVE; Range: NEGATIVE; Status: F Test: CANNABINOIDS URINE; Value: NEGATIVE; Range: NEGATIVE; Status: F Test: COCAINE METABOLITE URINE; Value: NEGATIVE; Range: NEGATIVE; Status: F Test: METHADONE URINE; Value: NEGATIVE; Range: NEGATIVE; Status: F Test: OPIATES URINE; Value: NEGATIVE; Range: NEGATIVE; Status: F Test: TRICYCLIC ANTIDEPRESS URINE; Value: NEGATIVE; Range: NEGATIVE; Status: F Test Note: ; ALL PRESUMPTIVE POSITIVE FINDINGS ARE UNCONFIRMED NORMAL VALUES THRESHOLD IN NG/ML AMPHETAMINES 1000 METHAMPHETAMINES 1000 BARBITURATES 300 BENZODIAZEPINES 300 CANNABINOIDS (THC) 50 COCAINE METABOLITE 300 METHADONE 300 OPIATES 300 PHENCYCLIDINE 25 TRICYCLIC ANTIDEPRESSANTS 1000 RESULTS ARE FOR MEDICAL PURPOSES ONLY. ALL URINE SPECIMENS WILL BE SAVED FOR 3 DAYS. IF CONFIRMATION OF A PRESUMPTIVE POSTIVE SCREEN RESULT IS DESIRED, CALL CHEMISTRY ([phone]) AND REQUEST URINE TO BE SENT TO REFERENCE LAB. FOR A LIST OF CLOSELY RELATED COMPOUNDS PLEASE CALL THE LAB. Lab Order: Ethyl Alcohol (ethanol); SPEC'M 09/12/16 16:49 Test: ETHYL ALCOHOL (ETHANOL); Value: < 0.003; Range: 0.000-0.010; Units: %; Status: F Lab Order: Liver Profile; SPEC'M 09/12/16 16:49 Test: AST/SGOT; Value: 22; Range: 15-37; Units: U/L; Status: F Test: ALT/SGPT; Value: 26; Range: 12-78; Units: U/L; Status: F Test: ALKALINE PHOSPHATASE; Value: 184; Range: 45-117; Abnormal: Above high normal; Units: U/L; Status: F Test: BILIRUBIN,TOTAL; Value: 0.2; Range: 0.2-1.0; Units: MG/DL; Status: F Test: BILIRUBIN,DIRECT; Value: < 0.1; Range: 0.0-0.2; Units: MG/DL; Status: F Test: TOTAL PROTEIN; Value: 8.2; Range: 6.4-8.2; Units: GM/DL; Status: F Test: ALBUMIN; Value: 4.2; Range: 3.2-5.2; Units: GM/DL; Status: F Test: ALBUMIN/GLOBULIN RATIO; Value: 1.05; Range: 1.00-1.93; Status: F Lab Order: Salicylate Level; SPEC'M 09/12/16 16:49 Test: SALICYLATE LEVEL; Value: 2.0; Range: 5.0-30.0; Abnormal: Below low normal; Units: MG/DL; Status: F Lab Order: Thyroid Stimulating Hormone; SPEC'M 09/12/16 16:49 Test: THYROID STIMULATING HORMONE; Value: 1.440; Range: 0.358-3.740; Units: uIU/ML; Status: F Outcome: 09/12 19:24 Decision to Hospitalize by Provider. pc 21:44 Patient left the ED. sls1 Signatures: Matias Maki MD MD pc Delaney-Rowland, Sarah, MD MD sd1 Lynn Isabel RN RN Guerrero Osorio, YAMILEX PSA cs Belia Sierra, Reg Reg elham Boykin, Stoney, Security Aide Quique Yoder Marcus mas Ewald, Debi, SIGNAL INSPECTOR SIGNAL INSPECTOR eduard Steve, Armida, RN RN sls1 Angella Umaña,RN RN pml Bentley Polo, DO cs11 Sharon Koenig, SIGNAL INSPECTOR SIGNAL INSPECTOR Sil Mcgee,RN RN kas2 Adan Ingram, SIGNAL INSPECTOR SIGNAL INSPECTOR jmv Chart Complete MTDD
[2016-09-15 06:36] VITALS: BP 112/69
[2016-09-15] MEDS: SERTRALINE HCL 50 MG TAB PO SCH (09:15)
[2016-09-15] MEDS: OXcarbazepine 150 MG TAB PO SCH ×2 (09:15→21:11)
[2016-09-15] MEDS: DOXYCYCLINE HYCLATE 100 MG TAB PO SCH ×2 (09:15→21:11)
[2016-09-15 11:30] VITALS: BP 128/72
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
[2016-09-15 18:00] VITALS: BP 134/71
[2016-09-15] MEDS: ARIPiprazole 15 MG TAB (AbiLIFY) PO SCH (21:11)
[2016-09-16 06:18] VITALS: BP 109/61
[2016-09-16] MEDS: OXcarbazepine 150 MG TAB PO SCH ×2 (08:31→20:42)
[2016-09-16] MEDS: DOXYCYCLINE HYCLATE 100 MG TAB PO SCH ×2 (08:31→20:42)
[2016-09-16] MEDS: SERTRALINE HCL 50 MG TAB PO SCH (08:31)
[2016-09-16 18:34] VITALS: BP 130/65
[2016-09-16] MEDS: ARIPiprazole 15 MG TAB (AbiLIFY) PO SCH (20:42)
[2016-09-17 06:33] VITALS: BP 118/64
--- NOTE | 2016-09-17 07:03 | IPN ---
DATE: 09/16/2016 CHIEF COMPLAINT: Says feels better. SUBJECTIVE: Seen for followup, in the presence of staff. Says feels better, in that he is less depressed, says sleep is improved. He feels calmer. He denies any suicidal thoughts or intents. MENTAL STATUS EXAMINATION: He is neat. He is cooperative. No psychomotor agitation as such, though appears mildly fidgety. No psychomotor retardation. Answers questions logically, coherently. Affect is restricted but reactive in range. He denies any thoughts of harming himself or anyone else at present. Currently no evidence of any psychosis. Does not appear to be internally preoccupied. His cognition grossly intact. Judgment improved, as is insight. ASSESSMENT: Major depressive disorder. Rule out bipolar disorder. PLAN: Continue current care, which includes his current medication regimen Abilify 15 mg at night, Trileptal 450 mg twice a day, sertraline 50 mg daily. He is to be encouraged to participate in activities in the unit. Further recommendations will be made depending on the clinical picture. He hopes to be going home in early part of the week. VITAL SIGNS: Blood pressure 109/61, pulse 70, temperature 96.7.
[2016-09-17] MEDS: DOXYCYCLINE HYCLATE 100 MG TAB PO SCH ×2 (09:37→21:24)
[2016-09-17] MEDS: SERTRALINE HCL 50 MG TAB PO SCH (09:37)
[2016-09-17] MEDS: OXcarbazepine 150 MG TAB PO SCH ×2 (09:37→21:25)
[2016-09-17 18:00] VITALS: BP 128/63
[2016-09-17] MEDS: ARIPiprazole 15 MG TAB (AbiLIFY) PO SCH (21:25)
[2016-09-18 06:00] VITALS: BP 128/90
[2016-09-18] MEDS: SERTRALINE HCL 50 MG TAB PO SCH (08:44)
[2016-09-18] MEDS: DOXYCYCLINE HYCLATE 100 MG TAB PO SCH (08:44)
[2016-09-18] MEDS: OXcarbazepine 150 MG TAB PO SCH (08:44)
[2016-09-18] MEDS ORDERED: DOXY10CA PO (10:08)
[2016-09-18] MEDS ORDERED: VIST50CA PO (10:32)
[2016-09-18] MEDS ORDERED: TRAZ50TA4 PO (10:32)
[2016-09-18] MEDS ORDERED: OXCA150T PO (11:56)
[2016-09-18] MEDS ORDERED: TRAZO50TA PO (11:56)
[2016-09-18] MEDS ORDERED: SERT-141 PO (11:56)
[2016-09-18] MEDS ORDERED: HYDRO50TAB PO (11:56)
[2016-09-18] MEDS ORDERED: ARIP15TAB PO (11:56)
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
== END 2016-09-18 13:00 | disposition home or self-care (01) | DRG 751 ==
LOC: M ED 16:00 → M PSY 21:45
PROVIDERS: ADMIT Psychiatry & Neurology Psychiatry; ATTEND Psychiatry & Neurology Psychiatry
DX: F33.0 Major depressive disorder, recurrent, mild (principal); L03.213 Periorbital cellulitis; D50.9 Iron deficiency anemia, unspecified; Z65.3 Problems related to other legal circumstances; H54.42 Blindness, left eye, normal vision right eye; H50.9 Unspecified strabismus; Z81.8 Family history of other mental and behavioral disorders; Z62.810 Personal history of physical and sexual abuse in childhood; Z62.811 Personal history of psychological abuse in childhood

== ENCOUNTER 2017-01-09 18:03 | Emergency (ER) | payer MEDICAID, OTHER ==
[~2017-01-09 18:03] MED LIST changes: +ABIL15TA2 PO; +ARIP15TAB PO; +DOXY10CA PO; +HYDRO50TAB PO; +OXCA150T PO; +SERT50TA PO; +TRAZ50TA4 PO; +TRAZO50TA PO; +TRIL1TAB PO; +VIST50CA PO; +ZOLO50TA PO
[2017-01-09 19:19] LABS: MEAN CORPUSCULAR HEMOGLOBIN 28.7 pg (27.0-33.0); MEAN CORPUSCULAR HGB CONC 34.4 g/dl (32.0-36.5); MEAN CORPUSCULAR VOLUME 83.2 fl (80.0-96.0); RED CELL DISTRIBUTION WIDTH 14.8 % (11.5-14.5); WHITE BLOOD COUNT 7.5 K/mm3 (4.0-10.0)
[2017-01-09 19:40] LABS: METHADONE URINE NEGATIVE (NEGATIVE)
[2017-01-09 19:49] LABS: ALBUMIN 4.1 GM/DL (3.2-5.2); ALKALINE PHOSPHATASE 177 U/L (45-117); ALT/SGPT 33 U/L (12-78); ANION GAP 6 MEQ/L (8-16); AST/SGOT 23 U/L (15-37); BILIRUBIN,DIRECT < 0.1 MG/DL (0.0-0.2); BILIRUBIN,TOTAL 0.1 MG/DL (0.2-1.0); BLOOD UREA NITROGEN 22 MG/DL (7-18); CALCIUM LEVEL 8.7 MG/DL (8.5-10.1); CARBON DIOXIDE LEVEL 27 MEQ/L (21-32); CHLORIDE LEVEL 104 MEQ/L (98-107); CREATININE FOR GFR 0.77 MG/DL (0.70-1.30); GLOMERULAR FILTRATION RATE > 60.0 (>60); GLUCOSE, FASTING 115 MG/DL (70-105); SODIUM LEVEL 137 MEQ/L (136-145); TOTAL PROTEIN 8.2 GM/DL (6.4-8.2)
[2017-01-09 23:09] VITALS: BP 137/73
== END 2017-01-09 23:14 | disposition home or self-care (01) ==
LOC: M ED 19:53
DX: F43.20 Adjustment disorder, unspecified (principal); F33.9 Major depressive disorder, recurrent, unspecified; Z91.5 Personal history of self-harm; Z79.899 Other long term (current) drug therapy

== ENCOUNTER → 2018-01-23 | Outpatient (CLI) | payer MEDICAID, SELFPAY, OTHER ==
[2018-01-23 11:59] LABS: ESTIMATED AVERAGE GLUCOSE 111 MG/DL (60-110); HEMOGLOBIN A1c 5.5 %
[2018-01-23 12:01] LABS: ALBUMIN 3.9 GM/DL (3.2-5.2); ALBUMIN/GLOBULIN RATIO 0.98 (1.00-1.93); ALKALINE PHOSPHATASE 151 U/L (45-117); ALT/SGPT 25 U/L (12-78); ANION GAP 8 MEQ/L (8-16); AST/SGOT 21 U/L (7-37); BILIRUBIN,TOTAL 0.3 MG/DL (0.2-1.0); BLOOD UREA NITROGEN 22 MG/DL (7-18); CALCIUM LEVEL 8.6 MG/DL (8.5-10.1); CARBON DIOXIDE LEVEL 26 MEQ/L (21-32); CHLORIDE LEVEL 106 MEQ/L (98-107); CHOLESTEROL LEVEL 131 MG/DL (<200); CHOLESTEROL RISK RATIO 3.119 (<5); CREATININE FOR GFR 0.67 MG/DL (0.70-1.30); GLOMERULAR FILTRATION RATE > 60.0 (>60); GLUCOSE, FASTING 82 MG/DL (70-100); HDL CHOLESTEROL 42 MG/DL (>40); LDL CHOLESTEROL 72.2 MG/DL (<100); NON-HDL-C 89 MG/DL; POTASSIUM SERUM 4.1 MEQ/L (3.5-5.1); SODIUM LEVEL 140 MEQ/L (136-145); TOTAL PROTEIN 7.9 GM/DL (6.4-8.2); TRIGLYCERIDES LEVEL 84 MG/DL (<150)
== END ==
LOC: M LAB 10:41
DX: F31.9 Bipolar disorder, unspecified (principal); Z79.899 Other long term (current) drug therapy
CPT/HCPCS: 80053

== ENCOUNTER → 2018-05-20 | Outpatient (REF) | payer MEDICAID ==
[2018-05-20 13:28] LABS: ALBUMIN 3.6 GM/DL (3.2-5.2); ALBUMIN/GLOBULIN RATIO 0.86 (1.00-1.93); ALKALINE PHOSPHATASE 166 U/L (45-117); ALT/SGPT 28 U/L (12-78); ANION GAP 9 MEQ/L (8-16); AST/SGOT 24 U/L (7-37); BILIRUBIN,TOTAL 0.3 MG/DL (0.2-1.0); BLOOD UREA NITROGEN 19 MG/DL (7-18); CALCIUM LEVEL 8.3 MG/DL (8.5-10.1); CARBON DIOXIDE LEVEL 25 MEQ/L (21-32); CHLORIDE LEVEL 106 MEQ/L (98-107); CHOLESTEROL LEVEL 157 MG/DL (<200); CHOLESTEROL RISK RATIO 3.829 (<5); CREATININE FOR GFR 0.77 MG/DL (0.70-1.30); GLOMERULAR FILTRATION RATE > 60.0 (>60); GLUCOSE, FASTING 88 MG/DL (70-100); HDL CHOLESTEROL 41 MG/DL (>40); LDL CHOLESTEROL 89 MG/DL (<100); NON-HDL-C 116 MG/DL; SODIUM LEVEL 140 MEQ/L (136-145); TOTAL PROTEIN 7.8 GM/DL (6.4-8.2); TRIGLYCERIDES LEVEL 136 MG/DL (<150)
== END ==
LOC: M LAB REF 11:41
DX: Z13.220 Encounter for screening for lipoid disorders (principal)
CPT/HCPCS: 84443

== ENCOUNTER → 2018-09-25 | Outpatient (CLI) | payer MEDICAID ==
[~2018-09-25] MED LIST changes: -ABIL15TA2 PO; +ABIL1TAB12 PO; +DOXY100T2 PO; -DOXY10CA PO; -OXCA150T PO; +OXCA150T21 PO; +TRAZ-160 PO; -TRAZ50TA4 PO
[2018-09-25 10:35] LABS: HEMOGLOBIN A1c 5.6 %
[2018-09-25 11:17] LABS: CHOLESTEROL RISK RATIO 3.156 (<5)
== END ==
LOC: M LAB 08:59
PROVIDERS: ATTEND Nurse Practitioner Psychiatric/Mental Health
DX: F31.9 Bipolar disorder, unspecified (principal)

== ENCOUNTER 2019-01-05 16:38 | Emergency (ER) | payer OTHER ==
[~2019-01-05] VITALS: Ht 175.3 cm; Wt 106.8 kg
[2019-01-05 16:38] VITALS: BP 145/71
[~2019-01-05 16:38] MED LIST changes: -ARIP15TAB PO; +ARIP1TAB10 PO; -SERT50TA PO; -TRAZ-160 PO; +TRAZ-252 PO; +TRAZ1TAB10 PO; -TRAZO50TA PO
[2019-01-05] MEDS ORDERED: ADACEL/BOOSTRIX VACCINE (DIPHTH/PERTUSS/ACELL/TETANUS)0.5ML SYR (90715) IM ONE (18:45)
[2019-01-05] MEDS ORDERED: DOXY100C37 PO (18:50)
[2019-01-05] MEDS ORDERED: DOXYCYCLINE HYCLATE 100 MG TAB PO ONE (19:00)
[2019-01-05 19:07] LABS: BASO % 0.4 % (0.0-1.0); EOS # 0.1 10^3/uL (0.0-0.50); EOS % 1.4 % (0.0-3.0); HEMATOCRIT 38.7 % (42.0-52.0); HEMOGLOBIN 12.5 g/dl (13.5-17.5); LYMPH # 3.1 10^3/uL (1.5-6.5); LYMPH % 40.1 % (24.0-44.0); MEAN CORPUSCULAR HEMOGLOBIN 26.5 pg (27.0-33.0); MEAN CORPUSCULAR HGB CONC 32.3 g/dl (32.0-36.5); MEAN CORPUSCULAR VOLUME 82.2 fl (80.0-96.0); MONO # 0.6 10^3/uL (0.0-0.8); MONO % 7.9 % (0.0-5.0); NEUTROPHILS # 3.9 10^3/uL (1.8-7.7); NEUTROPHILS % 50.1 % (36.0-66.0); PLATELET COUNT, AUTOMATED 235 10^3/uL (150-450); RED BLOOD COUNT 4.71 10^6/uL (4.30-6.10); WHITE BLOOD COUNT 7.8 10^3/uL (4.0-10.0)
[2019-01-05 19:28] LABS: BLOOD UREA NITROGEN 22 MG/DL (7-18); CALCIUM LEVEL 8.5 MG/DL (8.5-10.1); CARBON DIOXIDE LEVEL 24 MEQ/L (21-32); CHLORIDE LEVEL 107 MEQ/L (98-107); CREATININE FOR GFR 0.72 MG/DL (0.70-1.30); GLOMERULAR FILTRATION RATE > 60.0 (>60); GLUCOSE, FASTING 88 MG/DL (70-100); SODIUM LEVEL 140 MEQ/L (136-145)
[2019-01-08 00:08] LABS: Lyme Disease IgG/IgM Antibodie <0.91 ISR (0.00-0.90); Lyme Disease IgM Ab Quantitati <0.80 index (0.00-0.79)
== END 2019-01-05 19:43 | disposition home or self-care (01) ==
LOC: M ED 16:38
DX: E86.0 Dehydration (principal); A69.20 Lyme disease, unspecified; L30.9 Dermatitis, unspecified; L29.9 Pruritus, unspecified; S30.860A Insect bite (nonvenomous) of lower back and pelvis, initial encounter; W57.XXXA Bitten or stung by nonvenomous insect and other nonvenomous arthropods, initial encounter; Y92.89 Other specified places as the place of occurrence of the external cause; F31.81 Bipolar II disorder; R45.4 Irritability and anger; Z79.899 Other long term (current) drug therapy

== ENCOUNTER 2019-02-04 11:42 | Emergency (ER) | payer OTHER ==
[~2019-02-04] VITALS: Ht 175.3 cm; Wt 107.1 kg
[~2019-02-04 11:42] MED LIST changes: +DOXY100C37 PO
[2019-02-04 14:13] VITALS: BP 139/78
== END 2019-02-04 14:14 | disposition home or self-care (01) ==
LOC: M ED 11:42
DX: Z04.89 Encounter for examination and observation for other specified reasons (principal)

== ENCOUNTER → 2019-03-14 | Outpatient (REF) | payer OTHER ==
[2019-03-14 17:19] LABS: BASO % 0.5 % (0.0-1.0); EOS # 0.2 10^3/uL (0.0-0.50); EOS % 3.1 % (0.0-3.0); HEMATOCRIT 37.2 % (42.0-52.0); LYMPH # 3.2 10^3/uL (1.5-6.5); LYMPH % 51.9 % (24.0-44.0); MEAN CORPUSCULAR HEMOGLOBIN 25.2 pg (27.0-33.0); MEAN CORPUSCULAR HGB CONC 32.3 g/dl (32.0-36.5); MONO # 0.6 10^3/uL (0.0-0.8); MONO % 10.3 % (0.0-5.0); NEUTROPHILS # 2.1 10^3/uL (1.8-7.7); PLATELET COUNT, AUTOMATED 264 10^3/uL (150-450); RED BLOOD COUNT 4.77 10^6/uL (4.30-6.10); WHITE BLOOD COUNT 6.1 10^3/uL (4.0-10.0)
== END ==
LOC: M LAB REF 16:23
PROVIDERS: ATTEND Family Medicine Addiction Medicine
DX: D64.9 Anemia, unspecified (principal)

== ENCOUNTER → 2019-09-25 | Outpatient (CLI) | payer OTHER ==
[~2019-09-25] MED LIST changes: +HYDR1TAB33 PO; -HYDRO50TAB PO
[2019-09-25 09:19] LABS: BASO % 0.3 % (0.0-1.0); EOS # 0.1 10^3/uL (0.0-0.5); EOS % 2.1 % (0.0-3.0); HEMATOCRIT 40.5 % (42.0-52.0); HEMOGLOBIN 13.4 g/dl (13.5-17.5); LYMPH % 48.2 % (24.0-44.0); MEAN CORPUSCULAR HEMOGLOBIN 28.2 pg (27.0-33.0); MEAN CORPUSCULAR HGB CONC 33.1 g/dl (32.0-36.5); MEAN CORPUSCULAR VOLUME 85.1 fl (80.0-96.0); MONO # 0.6 10^3/uL (0.0-0.8); MONO % 9.4 % (0.0-5.0); NEUTROPHILS # 2.4 10^3/uL (1.5-8.5); NEUTROPHILS % 39.8 % (36.0-66.0); PLATELET COUNT, AUTOMATED 214 10^3/uL (150-450); RED BLOOD COUNT 4.76 10^6/uL (4.30-6.10); WHITE BLOOD COUNT 6.1 10^3/uL (4.0-10.0)
[2019-09-25 09:44] LABS: HEMOGLOBIN A1c 5.2 %
[2019-09-25 09:53] LABS: ALBUMIN 3.7 GM/DL (3.2-5.2); ALT/SGPT 27 U/L (12-78); BILIRUBIN,TOTAL 0.3 MG/DL (0.2-1.0); BLOOD UREA NITROGEN 24 MG/DL (7-18); CALCIUM LEVEL 8.9 MG/DL (8.5-10.1); CARBON DIOXIDE LEVEL 26 MEQ/L (21-32); CHLORIDE LEVEL 106 MEQ/L (98-107); CHOLESTEROL LEVEL 155 MG/DL (<200); CHOLESTEROL RISK RATIO 4.305 (<5); CREATININE FOR GFR 0.81 MG/DL (0.70-1.30); FERRITIN 22 NG/ML (26-388); FREE T4 0.95 NG/DL (0.76-1.46); GLOMERULAR FILTRATION RATE > 60.0 (>60); GLUCOSE, FASTING 99 MG/DL (70-100); HDL CHOLESTEROL 36 MG/DL (>40); IRON (FE) 64 UG/DL (65-175); LDL CHOLESTEROL 95 MG/DL (<100); NON-HDL-C 119 MG/DL; POTASSIUM SERUM 3.9 MEQ/L (3.5-5.1); SODIUM LEVEL 139 MEQ/L (136-145); TOTAL PROTEIN 7.5 GM/DL (6.4-8.2); TRIGLYCERIDES LEVEL 122 MG/DL (<150)
[2019-09-25 09:58] LABS: FOLATE 14.9 NG/ML (>5.4)
== END ==
LOC: M LAB 08:33
PROVIDERS: ATTEND Nurse Practitioner Family
DX: Z00.01 Encounter for general adult medical examination with abnormal findings (principal); D64.9 Anemia, unspecified

== ENCOUNTER → 2019-09-25 | Outpatient (CLI) | payer OTHER ==
[2019-09-25 09:44] LABS: ALBUMIN 3.8 GM/DL (3.2-5.2); ALT/SGPT 29 U/L (12-78); BILIRUBIN,TOTAL 0.3 MG/DL (0.2-1.0); BLOOD UREA NITROGEN 24 MG/DL (7-18); CALCIUM LEVEL 8.7 MG/DL (8.5-10.1); CARBON DIOXIDE LEVEL 26 MEQ/L (21-32); CHLORIDE LEVEL 107 MEQ/L (98-107); CREATININE FOR GFR 0.75 MG/DL (0.70-1.30); GLOMERULAR FILTRATION RATE > 60.0 (>60); GLUCOSE, FASTING 104 MG/DL (70-100); HEMOGLOBIN A1c 5.2 %; POTASSIUM SERUM 3.9 MEQ/L (3.5-5.1); SODIUM LEVEL 140 MEQ/L (136-145); TOTAL PROTEIN 7.6 GM/DL (6.4-8.2)
== END ==
LOC: M LAB 08:36
PROVIDERS: ATTEND Nurse Practitioner Psychiatric/Mental Health
DX: F31.9 Bipolar disorder, unspecified (principal); Z79.899 Other long term (current) drug therapy

== ENCOUNTER 2021-05-20 01:02 | Emergency (ER) | payer OTHER ==
[~2021-05-20] VITALS: Ht 172.7 cm; Wt 122.7 kg
[~2021-05-20 01:02] MED LIST changes: -DOXY100C37 PO; +DOXY1CAP62 PO
--- OUTSIDE RECORDS SUMMARY | 2021-05-20 01:07 | CCD ---
Author Author [facility] Organization [facility] Address Unknown Phone Unavailable Care Team Providers Care Folded Cloth Taper Name Role Phone LaBarge, Jones Unavailable Pk Bateman MD Unavailable Unavailable Pk Bateman MD Unavailable Unavailable Pk Bateman MD Unavailable Unavailable Pk Bateman MD Unavailable Unavailable Pk Bateman MD Unavailable Unavailable Pk Bateman MD Unavailable Unavailable Pk Bateman MD Unavailable Unavailable Pk Bateman MD Unavailable Unavailable Pk Bateman MD Unavailable Unavailable Pk Bateman MD Unavailable Unavailable Pk Bateman MD Unavailable Unavailable Pk Bateman MD Unavailable Unavailable Pk Bateman MD Unavailable Unavailable Pk Bateman MD Unavailable Unavailable Pk Bateman MD Unavailable Unavailable Pk Bateman MD Unavailable Unavailable Pk Bateman MD Unavailable Unavailable Pk Bateman MD Unavailable Unavailable Pk Bateman MD Unavailable Unavailable Pk Bateman MD Unavailable Unavailable Pk Bateman MD Unavailable Unavailable Pk Bateman MD Unavailable Unavailable Pk Bateman MD Unavailable Unavailable Pk Bateman MD Unavailable Unavailable Pk Bateman MD Unavailable Unavailable Pk Bateman MD Unavailable Unavailable Pk Bateman MD Unavailable Unavailable Pk Bateman MD Unavailable Unavailable Pk Bateman MD Unavailable Unavailable Pk Bateman MD Unavailable Unavailable Pk Bateman MD Unavailable Unavailable Pk Bateman MD Unavailable Unavailable Pk Bateman MD Unavailable Unavailable Pk Bateman MD Unavailable Unavailable Pk Bateman MD Unavailable Unavailable Pk Bateman MD Unavailable Unavailable Pk Bateman MD Unavailable Unavailable Pk Bateman MD Unavailable Unavailable kP Bateman MD Unavailable Unavailable Pk Bateman MD Unavailable Unavailable Pk Bateman MD Unavailable Unavailable Pk Bateman MD Unavailable Unavailable Pk Bateman MD Unavailable Unavailable Pk Bateman MD Unavailable Unavailable Pk Bateman MD Unavailable Unavailable Pk Bateman MD Unavailable Unavailable Pk Bateman MD Unavailable Unavailable Pk Bateman MD Unavailable Unavailable Pk Bateman MD Unavailable Unavailable Pk Bateman MD Unavailable Unavailable Pk Bateman MD Unavailable Unavailable Pk Bateman MD Unavailable Unavailable Pk Bateman MD Unavailable Unavailable Pk Bateman MD Unavailable Unavailable Pk Bateman MD Unavailable Unavailable Pk Bateman MD Unavailable Unavailable Pk Bateman MD Unavailable Unavailable Pk Bateman MD Unavailable Unavailable Pk Bateman MD Unavailable Unavailable Pk Bateman MD Unavailable Unavailable Pk Bateman MD Unavailable Unavailable Pk Bateman MD Unavailable Unavailable Pk Bateman MD Unavailable Unavailable Pk Bateman MD Unavailable Unavailable Pk Bateman MD Unavailable Unavailable Pk Bateman MD Unavailable Unavailable Pk Bateman MD Unavailable Unavailable Pk Bateman MD Unavailable Unavailable Pk Bateman MD Unavailable Unavailable Pk Bateman MD Unavailable Unavailable Pk Bateman MD Unavailable Unavailable Pk Bateman MD Unavailable Unavailable Pk Bateman MD Unavailable Unavailable Pk Bateman MD Unavailable Unavailable Pk Bateman MD Unavailable Unavailable Pk Bateman MD Unavailable Unavailable Pk Bateman MD Unavailable Unavailable Pk Bateman MD Unavailable Unavailable Pk Bateman MD Unavailable Unavailable Pk Bateman MD Unavailable Unavailable Pk Bateman MD Unavailable Unavailable Pk Bateman MD Unavailable Unavailable Pk Bateman MD Unavailable Unavailable Pk Bateman MD Unavailable Unavailable Pk Bateman MD Unavailable Unavailable Pk Bateman MD Unavailable Unavailable Pk Bateman MD Unavailable Unavailable Pk Bateman MD Unavailable Unavailable Pk Bateman MD Unavailable Unavailable Pk Bateman MD Unavailable Unavailable Pk Bateman MD Unavailable Unavailable Pk Bateman MD Unavailable Unavailable Pk Bateman MD Unavailable Unavailable Licha Waller RHIT RHIT Unavailable Unavailable Joana Barclay BRADDER Unavailable Unavailable Joana Barclay BRADDER Unavailable Unavailable Barclay, R Glen BRADDER Unavailable Unavailable Barb, K Sofi [facility]-BRADDER Unavailable Unavailable Barb, K Sofi [facility]-BRADDER Unavailable Unavailable Barb, K Sofi [facility]-BRADDER Unavailable Unavailable Barb, K Osfi [facility]-BRADDER Unavailable Unavailable Barb, K Sofi [facility]-BRADDER Unavailable Unavailable [place], K Sofi PM[facility]-BRADDER Unavailable Unavailable Barb, K Sofi [facility]-BRADDER Unavailable Unavailable [place], K Sofi PM[facility]-BRADDER Unavailable Unavailable Waller, F Licha RHIT-BC Unavailable Unavailable Waller, F Licha RHIT-BC Unavailable Unavailable Waller, F Licha RHIT-BC Unavailable Unavailable Waller, F Licha RHIT-BC Unavailable Unavailable Waller, F Licha RHIT-BC Unavailable Unavailable Waller, F Licha RHIT-BC Unavailable Unavailable Waller, F Licha RHIT-BC Unavailable Unavailable Waller, F Licha RHIT-BC Unavailable Unavailable Waller, F Licha RHIT-BC Unavailable Unavailable Waller, F Licha RHIT-BC Unavailable Unavailable Waller, F Licha RHIT-BC Unavailable Unavailable Waller, F Licha RHIT-BC Unavailable Unavailable Waller, F Licha RHIT-BC Unavailable Unavailable Waller, F Licha RHIT-BC Unavailable Unavailable Waller, F Licha RHIT-BC Unavailable Unavailable Waller, F Licha RHIT-BC Unavailable Unavailable Waller, F Licha RHIT-BC Unavailable Unavailable Waller, F Licha RHIT-BC Unavailable Unavailable Waller, F Licha RHIT-BC Unavailable Unavailable Waller, F Licha RHIT-BC Unavailable Unavailable Waller, F Licha RHIT-BC Unavailable Unavailable Waller, F Licha RHIT-BC Unavailable Unavailable Waller, F Licha RHIT-BC Unavailable Unavailable Re-disclosure Warning The records that you are about to access may contain information from federally-assisted alcohol or drug abuse programs. If such information is present, then the following federally mandated warning applies: This information has been disclosed to you from records protected by federal confidentiality rules (42 CFR part 2). The federal rules prohibit you from making any further disclosure of this information unless further disclosure is expressly permitted by the written consent of the person to whom it pertains or as otherwise permitted by 42 CFR part 2. A general authorization for the release of medical or other information is NOT sufficient for this purpose. The Federal rules restrict any use of the information to criminally investigate or prosecute any alcohol or drug abuse patient.The records that you are about to access may contain highly sensitive health information, the redisclosure of which is protected by Article 27-F of the [facility] Public Health law. If you continue you may have access to information: Regarding HIV / AIDS; Provided by facilities licensed or operated by the [facility] Office of Mental Health; or Provided by the [facility] Office for People With Developmental Disabilities. If such information is present, then the following [facility] mandated warning applies: This information has been disclosed to you from confidential records which are protected by state law. State law prohibits you from making any further disclosure of this information without the specific written consent of the person to whom it pertains, or as otherwise permitted by law. Any unauthorized further disclosure in violation of state law may result in a fine or long-term sentence or both. A general authorization for the release of medical or other information is NOT sufficient authorization for further disc losure. Encounters Encounter Providers Location Date Indications Data Source(s ) Outpatient Attender: Glen Barclay NP [facility] 02/18/2021 02:00:00 AM EDT - 02/18/2021 02:00:00 AM EDT [facility] ([facility]) Attender: Glen Barclay NP 02/18/2021 12:00:00 AM EDT [facility] ([facility]) Brief Individual Psychotherapy - 30 min Attender: Jones [facility] 01/13/2021 02:00:00 AM EDT - 01/13/2021 02:00:00 AM EDT [facility] ([facility]) Attender: Jones Acevedo 01/13/2021 12:00:00 AM EDT [facility] ([facility]) Blue Bateman MD: [address] [place] [phone], Ph. Attender: Blue Bateman MD [place] - [facility] 12/27/2020 12:00:00 AM EDT [facility] ([facility]) Brief Individual Psychotherapy - 30 min Attender: Jones Schroeder [facility] 09/08/2020 02:00:00 AM EST - 09/08/2020 02:00:00 AM EST [facility] ([facility]) Attender: Jones Acevedo 09/08/2020 12:00:00 AM EST [facility] ([facility]) Outpatient Attender: [facility] 08/24/2020 02:00:00 AM EST - 08/24/2020 02:00:00 AM EST [facility] ([facility]) Attender: [facility] 08/24/2020 12: 00:00 AM EST [facility] ([facility]) Brief Individual Psychotherapy - 30 min Attender: Jones Schroeder [facility] 08/13/2020 01:00:00 AM EST - 08/13/2020 01:00:00 AM EST [facility] ([facility]) Attender: Jones [facility] 08/13/2020 12:00:00 AM EST [facility] ([facility]) Extended Individual Psychotherapy - 45 min Attender: Shahid soto [facility] 07/28/2020 01:30:00 AM EST - 07/28/2020 01:30:00 AM EST [facility] ([facility]) Attender: [facility] 07/28/2020 12:00:00 AM EST [facility] ([facility]) TEMPMHCTelemed 30" Psychotherapy Attender: Jones Acevedo [facility] 07/06/2020 01:00:00 AM EST - 07/06/2020 01:00:00 AM EST [facility] ([facility] 12:00:00 AM EST [facility] ([facility]) Brief Individual Psychotherapy - 30 min Attender: Jones Schroeder [facility] 06/15/2020 01:00:00 AM EST - 06/15/2020 01:00:00 AM EST [facility] ([facility]15/[facility] 12:00:00 AM EST [facility] ([facility]) Outpatient Attender: DILIP Waller [facility] 05/19/2020 02:10:01 PM EDT [facility] Outpatient Attender: Licha Waller RHIT-BC 05/19/2020 02: 10:00 PM EDT [facility] Outpatient Attender: RHIT Sridhar RHIT 05/19/2020 01:24:00 PM EDT [facility] Outpatient Att[facility]: [facility] 05/14/2020 11:37:01 AM EDT [facility] [id number]"Psychotherapy Attender: Jones Acevedo [facility] 05/11/2020 04:45:00 AM EDT - 05/11/2020 04:45:00 AM EDT [facility] ([facility]) Attender: Jones Acevedo 05/11/2020 12:00:00 AM EDT [facility] ([facility]) [facility] 04/07/2020 02:00:00 AM EDT - 04/07/2020 02:00:00 AM EDT [facility] ([facility]) Attender: Sofi [facility] 04/07/2020 12: 00:[facility] Functional Status Medications Medication Brand Name Start Date Product Form Dose Route Admi nistrative Instructions Pharmacy Instructions Status Indications Reaction Description Data Source(s) aripiprazole 30 MG Oral Tablet aripiprazole 06/21/2020 12:00:00 AM ES T 30 mg by mouth completed <td ID="Medica tionRxNorm_3">558603</td><td ID="MedicationMedication_3">aripiprazole</td><td ID="MedicationRoute_3">by mouth</td><td ID="MedicationRouteConcept_3">F07634</td><td ID="MedicationStartDate_3">06/21/2020</td><td ID="MedicationStopDate_3"></td><td ID="MedicationDosageFrequency_3">once a day</td><td ID="MedicationDuration_3"></td><td ID="MedicationFormulaStrength_3">30 mg</td><td ID="MedicationDosageForm_3">tablet</td><td ID="MedicationDosageFormCode_3"></td><td ID="MedicationDosageDescription_3"></td><td ID="MedicationMedicationId_3">[id number]</td><td ID="MedicationAccount_3">[id number]</td><td ID="MedicationNpid_3">[id number]</td><td ID="MedicationAuthorFirstName_3">Sofi</td><td ID="MedicationAuthorLastName_3">[place]</td><td ID="MedicationTaxonomyCode_3">[id number]</td><td ID="MedicationTaxonomyDesc_3">Psychiatric/Mental Health</td><td ID="MedicationPhoneNumber_3">[phone]</td> [facility] ([facility]) Sertraline 50 MG Oral Tablet sertraline 50 mg tablet sertraline 50 mg tablet completed sertraline 50 MG Oral Tablet [facility] ([facility]) Sertraline 100 MG Oral Tablet sertraline 100 mg tablet TAKE ONE TABLET BY MOUTH EVERY MORNING sertraline 100 mg tablet TAKE ONE TABLET BY MOUTH EVERY MORN ING completed sertraline 100 MG Oral Tablet [facility] ([facility]) Insurance Providers Payer name Policy type / Coverage type Policy ID Covered constitution party ID Covered constitution party's relationship to matthews Policy Matthews Plan Information Medicaid S [id number] S [id number] Medicaid P [id number] S [id number] Medicaid S [id number] S [id number] Managed Care - Community Plan [facility] P [id number] S [id number] Medicaid S [id number] S [id number] Managed Care - Community Plan [facility] P [id number] S [id number] Managed Care - Community Plan [facility] P [id number] S [id number] Managed Care - [facility] Community Plan P [id number] S [id number] Medicaid S [id number] S [id number] Managed Care - [facility] Community Plan P [id number] S [id number] [facility]) O [id number] S [id number] O UNAVAILABLE UNAVAILA BLE Managed Care - Community Plan [facility] S UNAVAILABLE S UNAVAILABLE SELF PAY ONLY [id number] SP [id number] MEDICAID [id number] SP [id number] [facility] Care - Community Plan [facility] P [id number] S [id number] UN COMMUNITY PLAN MCDO [id number] SP [id number] UN COMMUNITY PLAN MCDO [id number] SP [id number] MEDICAID [id number] SP [id number] MEDICAID [id number] SP [id number] UN COMMUNITY PLAN MCDO [id number] SP [id number] UN COMMUNITY PLAN [facility] [id number] SP [id number] MEDICAID [id number] SP [id number] Problems, Conditions, and Diagnoses Code Display Name Description Problem Type Effective Dates Data Source(s) F31.9 Bipolar disorder, unspecified Bipolar I Disorder, Current or most recent episode unspecified Condition 02/18/2021 12:00:00 AM EDT [facility] ([facility]) 530.81 Gastro-esophageal reflux disease without esophagitis Gastro-esophageal reflux disease without esophagitis 05/19/2020 02:09:27 PM ED T [facility] [id number] Gastroesophageal reflux disease without esophagitis Gastroesophageal Reflux Disease without Esophagitis Problem 05/19/2020 12:00:00 AM ED T [facility] ([facility]) Surgeries/Procedures Procedure Description Date Indications Data Source(s) MHCTelemed E/M Lvl 4--Est pt 02/18/2021 12:00:00 AM EDT - 02/18/2021 12:00:00 AM EDT [facility] ([facility]) MHCTelemed E/M Lvl 4--Est pt 02/18/2021 12:00:00 AM ED T [facility] ([facility]) Brief Individual Psychotherapy - 30 min 01/13/2021 12:00:00 AM EDT - 01/13/2021 12:00:00 AM EDT [facility] ([facility]) Brief Individual Psychotherapy - 30 min 01/13/2021 12: 00:00 AM EDT [facility] ([facility]) Brief Individual Psychotherapy - 30 min 09/08/2020 12:00:00 AM EST - 09/08/2020 12:00:00 AM EST [facility] ([facility]) Brief Individual Psychotherapy - 30 min 09/08/2020 12: 00:00 AM EST [facility] ([facility]) MHC Telemed E/M Lvl 3--Est pt 08/24/2020 12:00:00 AM EST - 08/24/2020 12:00:00 AM EST [facility] ([facility]) Telemed A/O 30" 08/24/2020 12:00:00 AM EST [facility] ([facility]) MHC Telemed E/M Lvl 3--Est pt 08/24/2020 12:00:[address] [facility] ([facility]) Brief Individual Psychotherapy - 30 min 08/13/2020 12:00:00 AM EST - 08/13/2020 12:00:00 AM EST [facility] ([facility]) Brief Individual Psychotherapy - 30 min 08/13/2020 12: 00:00 AM EST [facility] ([facility]) Extended Individual Psychotherapy - 45 min 07/28/2020 12:00:00 AM EST - 07/28/2020 12:00:00 AM EST [facility] ([facility]) Extended Individual Psychotherapy - 45 min 0 12:00:00 AM EST [facility] ([facility]) TEMPMHCTelemed 30" Psychotherapy 12:00:00 AM EST - 07/06/2020 12:00:00 AM EST [facility] ([facility]) TEMPMHCTelemed 30" Psychotherapy 07/06/2020 12:00:00 A M EST [facility] ([facility]) Brief Individual Psychotherapy - 30 min 06/15/2020 12:00:00 AM EST - 06/15/2020 12:00:00 AM EST [facility] ([facility]) Brief Individual Psychotherapy - 30 min 06/15/2020 12: 00:00 AM EST [facility] ([facility]) [id number]"Psychotherapy 0 12:00:00 AM EDT - 05/11/2020 12:00:00 AM EDT [facility] ([facility]) [id number]"Psychotherapy 05/11/2020 12:00:00 AM EDT [facility] ([facility]) MHC Telemed E/M Lvl 3--Est pt 04/07/2020 12:00:00 AM EDT - 04/07/2020 12:00:00 AM EDT [facility] ([facility]) Telemed A/O 30" 04/07/2020 12:00:00 AM EDT [facility] ([facility]) MHC Telemed E/M Lvl 3--Est pt 04/07/2020 12:00:00 AM E DT [facility] ([facility]) Results ID Date Data Source [id number] 05/19/2020 01:30:00 PM EDT [facility] Measurements & CalculationsHeight: 69 inches (5 ft. 9 in.) 175.26 cm Weight: 261 pounds 2 oz. 118.70 kg Body Mass Index (BMI): 38.70BMI Interpretation: ObeseBody Surface Area (BSA): 2.32Weight Management Education Done (Nutrition/Physical Activity)Vital SignsTemperature: 98.7FPulse Rate: 81 beats/minuteRespiratory Rate: 14 respirat ions/minuteBlood Pressure: 125/84 Vital Signs performed by: Roxie Landin, May 19, 2020 1:35 PMVital Signs performed by: Roxie Landin, May 19, 2020 1:35 PMInitial Intake Information From: patientRoom #: 15Infectious Disease / Travel ScreeningRecent travel for you or any close contacts? NoHave you had any close contact with anyone diagnosed with or under investigation for COVID-19 (coronavirus)? NoFever? NoRespiratory symptoms: cough, cold, congestion, shortness of breath, difficulty breathing? NoLoss of smell? NoLoss of taste? NoSmoking, Tobacco, Vaping or Smoke Exposure StatusSmoke Status: never smokerTobacco Use: NoDo you vape? NoPassive Smoke Exposure: NoHealthcare HistorySince your last office visit...Have you been admitted to the hospital? NoHave you been to an emergency room (ER) or urgent care clinic? NoHave you seen another healthcare provider? Yes - community clinicHave you seen a dentist? NoIntake performed by: Roxie Lanidn, May 19, 2020 1:32 PMRate Your HealthIn general, would you say your health is? Very GoodPain AssessmentAre you currently having any pain which... You would like your provider to address? No Affects your activity level? NoDepression Screening - PHQ-2Over the last two weeks, have you... Had little interest or pleasure in doing things? Not at all Been feeling down, depressed, or hopeless? Not at all PHQ-2 Score: 0Anxiety Screening - DANIELLE-2Over the last two weeks, have you been... Feeling nervous, anxious, or on edge? Not at all Unable to stop or control worrying? Not at all DANIELLE-2 Score: 0Food InsecurityWithin the past year...Did you worry whether your food would run out before you got money to buy more? Never trueWas there a time when the food you bought didn't last and you didn't have money to get more? Never trueScreening, Brief Intervention, & Referral to Treatment (SBIRT)Pre-Screening Questions How many times have you have 5 or more drinks in a day? 0How many times have you used an illegal drug or used a prescription medication for a non-medical reason? 0Performed by: Roxie Landin, May 19, 2020 1:33 PMPatient History Medical History:DepressionAnxietyMood disordersPanic attacksBipolar disorder type 2Surgical History:No known surgical historyFamily History:FH AsthmaFH DiabetesFH HypertensionFH Mental IllnessFH congenital/genetic disorderFH esophageal cancerHypertension (Mother)Social/Personal History:Lives with mother Chief Complaintheartbun History of Present Illness (HPI)For a while and getting worse with time.Used to be able to get rid of it with mild but the milk is not working any more.HPI performed by: Blue Bateman MD, May 19, 2020 2:08 PMTransitions of Care InboundProblem ReviewProblem List was reviewed and/or updated during this visit.Medication Reconciliation & ReviewMedication List was reviewed and/or updated during this visit, including review of any [id number] medications, herbal therapies, and/or supplements.Allergy ReviewAllergy List was reviewed a nd/or updated during this visit.Adult Preventive CareProvider Calculated and Reviewed all Clinical Protocols for patient today. Labs/Meds/Other Counseling- Nutrition and Physical Activity:BMI Interpretation: Obese (05/19/2020) Counseling: Done (05/19/2020) Physical Activity: Done (05/19/2020)Review of Systems General: Denies chills, dizziness, fatigue, fever. Cardiovascular: Denies chest pain, palpitations, feeling faint. Respiratory: Denies cough, difficulty breathing, shortness of breath. Gastrointestinal: Denies nausea, vomiting, diarrhea, constipation. Genitourinary: Denies urinary frequency, urinary urgency, incomplete emptying. Physical ExamGeneral Appearance: well nourished, well hydrated, no acute distressRespiratory, Auscultation: clear to auscultation bilaterally; no rales, rhonchi, or wheezesRespiratory, Effort: no intercostal retractions or use of accessory musclesCardiovascular, Auscultation: S1, S2 audible; no murmur, rub, or gallop; RRRAbdomen: soft, non-tender, no masses, bowel sounds normalGait & Station: normalSkin, Inspection: no rashes, lesions, or ulcerationsCervical Nodes: no adenopathyOrientation: oriented to time, place, and personMood & Affect: no depression, anxiety, or agitationJudgment & Insight: intactCare Management Plan Transitions of CareInboundRate Your HealthIn general, would you say your health is? Very GoodAssessment & Plan Problems:Added: Gastro-esophageal reflux disease without esophagitis (ICD-530.81) (DKE62-S83.9) Assessment: Instructions: Start omeprazole.Discussed dietary changes and weight loss.Recheck 4 months, sooner as needed.Patient Instructions/Care Plan: Gastro-esophageal reflux disease without esophagitis: Start omeprazole.Discussed dietary changes and weight loss.Recheck 4 months, sooner as needed. Plan developed in collaboration with patient and/or familyMedications:PRILOSEC OTC 20 MG ORAL TABLET DELAYED RELEASETRILEPTAL 300 MG ORAL TABLETABILIFY 15 MG ORAL TABLETZOLOFT 50 MG ORAL TABLETMedication Changes:New Prescription:PRILOSEC OTC 20 MG ORAL TABLET DELAYED RELEASE-One tablet by mouth every day Qty: 30[Tablet] Refills: 2 Method: ElectronicRemoved:FEROSUL 325 (65 FE) MG ORAL TABLET-Take one tab po BIDAllergies:No Known Allergies (updated 08/02/2012) Orders:Adult - Ofc Vst, EST, Level III [[id number]] Medications:PRILOSEC OTC 20 MG ORAL TABLET DELAYED RELEASE (OMEPRAZOLE MAGNESIUM) One tablet by mouth every day #30[Tablet] x 2 Route:ORAL Entered and Authorized by: Blue Bateman MD Method used: Electronically to [facility]* (retail) [address] [place] [address] Fax: Note to Pharmacy: Route: ORAL; RxID: [id number] signed by Blue Bateman MD on 05/19/2020 at 2:09 PM Name Value Range Interpretation Code Description Data Jacki rce(s) Supporting Document(s) Procedure Social History Code Duration Value Status Description Data Source(s ) Smoking 02/18/2021 12:00:00 AM EDT Unknown if ever smoked comp leted Unknown if ever smoked [facility] ([facility]) Smoking 01/13/2021 12:00:00 AM EDT Unknown if ever smoked comp leted Unknown if ever smoked [facility] ([facility]) Smoking 09/08/2020 12:00:00 AM EST Unknown if ever smoked comp leted Unknown if ever smoked [facility] ([facility]) Smoking 08/24/2020 12:00:00 AM EST Unknown if ever smoked comp leted Unknown if ever smoked [facility] ([facility]) Smoking 08/13/2020 12:00:00 AM EST Unknown if ever smoked comp leted Unknown if ever smoked [facility] ([facility]) Smoking 07/28/2020 12:00:00 AM EST Unknown if ever smoked comp leted Unknown if ever smoked [facility] ([facility]) Smoking 07/06/2020 12:00:00 AM EST Unknown if ever smoked comp leted Unknown if ever smoked [facility] ([facility]) Smoking 06/15/2020 12:00:00 AM EST Unknown if ever smoked comp leted Unknown if ever smoked [facility] ([facility]) Smoking 05/11/2020 12:00:00 AM EDT Unknown if ever smoked comp leted Unknown if ever smoked [facility] ([facility]) Smoking 04/07/2020 12:00:00 AM EDT Unknown if ever smoked comp leted Unknown if ever smoked [facility] ([facility]) Vital Signs ID Date Data Source UNK Name Value Range Interpretation Code Description Data Source(s) Diastolic blood pressure 79 mm[Hg] 79 mm[Hg] [place] ([facility]) Body height 69 [in_i] 69 [in_i] [place] ([facility]) Body mass index (BMI) [Ratio] 22.4 kg/m2 22.4 k g/m2 [place] ([facility]) Systolic blood pressure 120 mm[Hg] 120 mm[Hg] A THENA ([facility]) Body weight 2424 [oz_av] 2424 [oz_av] [place] ([facility]) Body height 0.00 in Normal (applies to non-numeric resu lts) 0.00 in [facility] ([facility]) Body weight Measured 0.00 lbs Normal (applies to n on-numeric results) 0.00 lbs [facility] ([facility]) Body mass index (BMI) [Ratio] 0.00 kg/m2 No rmal (applies to non-numeric results) 0.00 kg/m2 [facility] ([facility]) Systolic blood pressure 0 mm[Hg] Normal (applies t o non-numeric results) 0 mm[Hg] [facility] ([facility]) Diastolic blood pressure 0 mm[Hg] Normal (applies to non-numeric results) 0 mm[Hg] [facility] ([facility]) Diastolic blood pressure 84 mm[Hg] 84 mm[Hg] [place] ([facility]) Body height 69 [in_i] 69 [in_i] [place] ([facility]) Body mass index (BMI) [Ratio] 38.70 kg/m2 38.70 kg/m2 [place] ([facility]) Systolic blood pressure 125 mm[Hg] 125 mm[Hg] A THENA ([facility]) Body weight 4178.08 [oz_av] 4178.08 [oz_av] ATH DENNIS ([facility]) Body height 0.00 in Normal (applies to non-numeric resu lts) 0.00 in [facility] ([facility]) Body weight Measured 0.00 lbs Normal (applies to n on-numeric results) 0.00 lbs [facility] ([facility]) Body mass index (BMI) [Ratio] 0.00 kg/m2 No rmal (applies to non-numeric results) 0.00 kg/m2 [facility] Systolic blood pressure 0 mm[Hg] Normal (applies t o non-numeric results) 0 mm[Hg] [facility] ([facility]) Diastolic blood pressure 0 mm[Hg] Normal (applies to non-numeric results) 0 mm[Hg] [facility]) Patient Treatment Plan of Care Planned Activity Planned Date Details Description Data Source (s) Sertraline 50 MG Oral Tablet [place] ([facility]) Sertraline 100 MG Oral Tablet [place] ([facility])
[2021-05-20 06:00] VITALS: BP 140/83
[2021-05-20 06:04] LABS: HEMATOCRIT 39.1 % (42.0-52.0); HEMOGLOBIN 12.4 g/dl (13.5-17.5); MEAN CORPUSCULAR HEMOGLOBIN 24.3 pg (27.0-33.0); MEAN CORPUSCULAR HGB CONC 31.7 g/dl (32.0-36.5); MEAN CORPUSCULAR VOLUME 76.5 fl (80.0-96.0); PLATELET COUNT, AUTOMATED 270 10^3/uL (150-450); RED BLOOD COUNT 5.11 10^6/uL (4.30-6.10); WHITE BLOOD COUNT 11.5 10^3/uL (4.0-10.0)
[2021-05-20 06:40] LABS: ACETAMINOPHEN LEVEL < 2.0 UG/ML (10.0-30.0); ALBUMIN 3.7 GM/DL (3.2-5.2); ALT/SGPT 26 U/L (12-78); BILIRUBIN,DIRECT < 0.1 MG/DL (0.0-0.2); BILIRUBIN,TOTAL 0.3 MG/DL (0.2-1.0); BLOOD UREA NITROGEN 21 MG/DL (7-18); CALCIUM LEVEL 9.3 MG/DL (8.5-10.1); CARBON DIOXIDE LEVEL 25 MEQ/L (21-32); CHLORIDE LEVEL 108 MEQ/L (98-107); CREATININE FOR GFR 0.91 MG/DL (0.70-1.30); ETHYL ALCOHOL (ETHANOL) < 0.003 % (0.000-0.010); GLOMERULAR FILTRATION RATE > 60.0 (>60); GLUCOSE, FASTING 89 MG/DL (70-100); SALICYLATE LEVEL < 1.7 MG/DL (5.0-30.0); SODIUM LEVEL 140 MEQ/L (136-145)
--- OUTSIDE RECORDS SUMMARY | 2021-05-20 08:20 | CCD ---
Author Author [facility] Organization [facility] Address Unknown Phone Unavailable Care Team Providers Care Culturist Name Role Phone LaBarge, Jones Unavailable Pk [...] Pk Bateman MD Unavailable Unavailable Licha Waller FARM TRACTOR OPERATOR FARM TRACTOR OPERATOR Unavailable Unavailable Joana Barclay PSYCHOLOGY ASSISTANT Unavailable Unavailable Joana Barclay PSYCHOLOGY ASSISTANT Unavailable Unavailable Joana Barclay PSYCHOLOGY ASSISTANT Unavailable Unavailable [place], K Sofi PMH-PSYCHOLOGY ASSISTANT Unavailable Unavailable [place], K Sofi PMH-PSYCHOLOGY ASSISTANT Unavailable Unavailable Barb, K Sofi PMH-PSYCHOLOGY ASSISTANT Unavailable Unavailable [place], K Sofi PMH-PSYCHOLOGY ASSISTANT Unavailable Unavailable Barb, K Sofi PMH-PSYCHOLOGY ASSISTANT Unavailable Unavailable Barb, K Sofi PMH-PSYCHOLOGY ASSISTANT Unavailable Unavailable Barb, K Sofi PMH-PSYCHOLOGY ASSISTANT Unavailable Unavailable Barb, K Sofi PMH-PSYCHOLOGY ASSISTANT Unavailable Unavailable Waller, F Licha FARM TRACTOR OPERATOR-BC Unavailable Unavailable Waller, F Licha FARM TRACTOR OPERATOR-BC Unavailable Unavailable Waller, F Licha FARM TRACTOR OPERATOR-BC Unavailable Unavailable Waller, F Licha FARM TRACTOR OPERATOR-BC Unavailable Unavailable Waller, F Licha FARM TRACTOR OPERATOR-BC Unavailable Unavailable Waller, F Licha FARM TRACTOR OPERATOR-BC Unavailable Unavailable Waller, F Licha FARM TRACTOR OPERATOR-BC Unavailable Unavailable Waller, F Licha FARM TRACTOR OPERATOR-BC Unavailable Unavailable Waller, F Licha FARM TRACTOR OPERATOR-BC Unavailable Unavailable Waller, F Licha FARM TRACTOR OPERATOR-BC Unavailable Unavailable Waller, F Licha FARM TRACTOR OPERATOR-BC Unavailable Unavailable Waller, F Licha FARM TRACTOR OPERATOR-BC Unavailable Unavailable Waller, F Licha FARM TRACTOR OPERATOR-BC Unavailable Unavailable Waller, F Licha FARM TRACTOR OPERATOR-BC Unavailable Unavailable Waller, F Licha FARM TRACTOR OPERATOR-BC Unavailable Unavailable Waller, F Licha FARM TRACTOR OPERATOR-BC Unavailable Unavailable Waller, F Licha FARM TRACTOR OPERATOR-BC Unavailable Unavailable Waller, F Licha FARM TRACTOR OPERATOR-BC Unavailable Unavailable Waller, F Licha FARM TRACTOR OPERATOR-BC Unavailable Unavailable Waller, F Licha FARM TRACTOR OPERATOR-BC Unavailable Unavailable Waller, F Licha FARM TRACTOR OPERATOR-BC Unavailable Unavailable Waller, F Licha FARM TRACTOR OPERATOR-BC Unavailable Unavailable Waller, F Licha FARM TRACTOR OPERATOR-BC Unavailable Unavailable Re-disclosure Warning The records that [...] is protected by Article 27-F of the [facility] Public Health law. If you continue you may have access to information: Regarding HIV / AIDS; Provided by facilities licensed or operated by the [facility] Office of Mental Health; or Provided by the [facility] Office for People With Developmental Disabilities. If such information is present, then the following [facility] mandated warning applies: This information has been [...] law may result in a fine or correction sentence or both. A general authorization for the release of medical or other information is NOT sufficient authorization for further disc losure. Encounters Encounter Providers Location Date Indications Data Source(s ) Outpatient Attender: Glen Barclay NP [facility] 02/18/2021 02:00:00 AM EDT - 02/18/2021 02:00:00 AM EDT [facility] ([facility]) Attender: Glen Barclay NP 02/18/2021 12:00:00 AM EDT [facility] ([facility]) Brief Individual Psychotherapy - 30 min Attender: Jones Schroeder [facility] 01/13/2021 02:00:00 AM EDT - 01/13/2021 02:00:00 AM EDT [facility] ([facility]) Attender: Jones Acevedo 01/13/2021 12:00:00 AM EDT [facility] ([facility]) Blue Bateman MD: [address] [place] [phone], Ph. Attender: Blue Bateman MD [place] - [facility] Medical 12/27/2020 12:00:00 AM EDT [place] ([facility]) Brief Individual Psychotherapy - 30 min Attender: Jones Schroeder [facility] 09/08/2020 02:00:00 AM EST - 09/08/2020 02:00:00 AM EST [facility] ([facility]) Attender: Jones Acevedo 09/08/2020 12:00:00 AM EST [facility] ([facility]) Outpatient Attender: Sofi Day [facility]-PSYCHOLOGY ASSISTANT [facility] 08/24/2020 02:00:00 AM EST - 08/24/2020 02:00:00 AM EST [facility] ([facility]) Attender: Sofi Day [facility]-PSYCHOLOGY ASSISTANT 08/24/2020 12: 00:00 AM EST [facility] ([facility]) Brief Individual Psychotherapy - 30 min Attender: Jones Schroeder [facility] 08/13/2020 01:00:00 AM EST - 08/13/2020 01:00:00 AM EST [facility] ([facility]) Attender: Jones [facility] 08/13/2020 12:00:00 AM EST [facility] ([facility]) Extended Individual Psychotherapy - 45 min Attender: Shahid soto [facility] 07/28/2020 01:30:00 AM EST - 07/28/2020 01:30:00 AM EST [facility] ([facility]) Attender: [facility] 07/28/2020 12:00:00 AM EST [facility] ([facility]) TEMPMHCTelemed 30" Psychotherapy Attender: Jones Acevedo [facility] 07/06/2020 01:00:00 AM EST - 07/06/2020 01:00:00 AM EST [facility] ([facility] 12:00:00 AM EST [facility] ([facility]) Brief Individual Psychotherapy - 30 min Attender: Jones Schroeder [facility] 06/15/2020 01:00:00 AM EST - 06/15/2020 01:00:00 AM EST [facility] ([facility]) Attender: Jones [facility] 06/15/2020 12:00:00 AM EST [facility] ([facility]) Outpatient Attender: DILIP Wlaler FARM TRACTOR OPERATOR 05/19/2020 02:10:01 PM EDT [facility] Outpatient Attender: Licha Waller FARM TRACTOR OPERATOR-BC 05/19/2020 02: 10:00 PM EDT [facility] Outpatient Attender: FARM TRACTOR OPERATOR Sridhar FARM TRACTOR OPERATOR 05/19/2020 01:24:00 PM EDT [facility] Outpatient Attender: DILIP Sridhar FARM TRACTOR OPERATOR 05/14/2020 11:37:01 AM EDT [facility] [id number]"Psychotherapy Attender: Jones Acevedo [facility] 05/11/2020 04:45:00 AM EDT - 05/11/2020 04:45:00 AM EDT [facility] ([facility]) Attender: Jones Acevedo 05/11/2020 12:00:00 AM EDT [facility] ([facility]) [facility] 04/07/2020 02:00:00 AM EDT - 04/07/2020 02:00:00 AM EDT [facility] ([facility]) Attender: Sofi LARA 04/07/2020 12: 00:00 AM EDT [facility] ([facility]) Functional Status Medications Medication Brand Name Start Date Product Form Dose Route Admi nistrative Instructions Pharmacy Instructions Status Indications Reaction Description Data Source(s) aripiprazole 30 MG Oral Tablet aripiprazole 06/21/2020 12:00:00 AM ES T 30 mg by mouth completed <td ID="Medica tionRxNorm_3">[id number]</td><td ID="MedicationMedication_3">aripiprazole</td><td ID="MedicationRoute_3">by mouth</td><td ID="MedicationRouteConcept_3">[id number]</td><td ID="MedicationStartDate_3">06/21/2020</td><td ID="MedicationStopDate_3"></td><td ID="MedicationDosageFrequency_3">once a day</td><td ID="MedicationDuration_3"></td><td ID="MedicationFormulaStrength_3">30 mg</td><td ID="MedicationDosageForm_3">tablet</td><td ID="MedicationDosageFormCode_3"></td><td ID="MedicationDosageDescription_3"></td><td ID="MedicationMedicationId_3">[id number]</td><td ID="MedicationAccount_3">[id number]</td><td ID="MedicationNpid_3">[id number]</td><td ID="MedicationAuthorFirstName_3">Sofi</td><td ID="MedicationAuthorLastName_3">[place]</td><td ID="MedicationTaxonomyCode_3">[id number]</td><td ID="MedicationTaxonomyDesc_3">Psychiatric/Mental Health</td><td ID="MedicationPhoneNumber_3">[phone]</td> [facility] ([facility]) Sertraline 50 MG Oral Tablet sertraline 50 mg tablet sertraline 50 mg tablet completed sertraline 50 MG Oral Tablet [place]INE ([facility]) Sertraline 100 MG Oral Tablet sertraline 100 mg tablet TAKE ONE TABLET BY MOUTH EVERY MORNING sertraline 100 mg tablet TAKE ONE TABLET BY MOUTH EVERY MORN ING completed sertraline 100 MG Oral Tablet [place]INE ([facility]) Insurance Providers Payer name Policy type / Coverage type Policy ID Covered libertarian ID Covered libertarian's relationship to travis Policy Travis Plan Information Medicaid S [id number] S [id number] Medicaid P [id number] S [id number] Medicaid S [id number] S [id number] Managed Care - Community Plan [facility] P [id number] S [id number] Medicaid S [id number] S [id number] Managed Care - Community Plan [facility] P [id number] S [id number] Managed Care - Community Plan [facility] P [id number] S [id number] Managed Care - [facility] Community Plan P [id number] S [id number] Medicaid S [id number] S [id number] Managed Care - [facility] Community Plan P [id number] S [id number] [facility](MCA[facility]) O [id number] S [id number] O UNAVAILABLE UNAVAILA BLE [facility] Care - Community Plan [facility] S UNAVAILABLE S UNAVAILABLE SELF PAY ONLY [id number] SP [id number] MEDICAID [id number] SP [id number] [facility] Care - [facility] Plan [facility] P [id number] S [id number] [facility] PLAN [facility] [id number] SP [id number] [facility] COMM[facility] [id number] SP [id number] MEDICAID [id number] SP [id number] MEDICAID [id number] SP [id number] [facility] [id number] SP [id number] [facility] [id number] SP [id number] MEDICAID [id number] SP [id number] Problems, Conditions, and Diagnoses Code Display Name Description Problem Type Effective Dates Data Source(s) F31.9 Bipolar disorder, unspecified Bipolar I Disorder, Current or most recent episode unspecified Condition 02/18/2021 12:00:00 AM EDT [facility]) 530.81 Gastro-esophageal reflux disease without esophagitis Gastro-esophageal reflux disease without esophagitis 05/19/2020 02:09:27 PM ED T [facility] [id number] Gastroesophageal reflux disease without esophagitis Gastroesophageal Reflux Disease without Esophagitis Problem 05/19/2020 12:00:00 AM ED T [place] ([facility]) Surgeries/Procedures Procedure Description Date Indications Data Source(s) MHCTelemed E/M Lvl 4--Est pt 02/18/2021 12:00:00 AM EDT - 02/18/2021 12:00:00 AM EDT [facility] ([facility]) MHCTelemed E/M Lvl 4--Est pt 02/18/2021 12:00:00 AM ED T [facility] ([facility]) Brief Individual Psychotherapy - 30 min 01/13/2021 12:00:00 AM EDT - 01/13/2021 12:00:00 AM EDT [facility] ([facility]) Brief Individual Psychotherapy - 30 min 01/13/2021 12: 00:00 AM EDT [facility] ([facility]) Brief Individual Psychotherapy - 30 min 09/08/2020 12:00:00 AM EST - 09/08/2020 12:00:00 AM EST [facility] ([facility]) Brief Individual Psychotherapy - 30 min 09/08/2020 12: 00:00 AM EST [facility] ([facility]) MHC Telemed E/M Lvl 3--Est pt 08/24/2020 12:00:00 AM EST - 08/24/2020 12:00:00 AM EST [facility] ([facility]) Telemed A/O 30" 08/24/2020 12:00:00 AM EST [facility] ([facility]) MHC Telemed E/M Lvl 3--Est pt 08/24/2020 12:00:[address] [facility] ([facility]) Brief Individual Psychotherapy - 30 min 08/13/2020 12:00:00 AM EST - 08/13/2020 12:00:00 AM EST [facility] ([facility]) Brief Individual Psychotherapy - 30 min 08/13/2020 12: 00:00 AM EST [facility] ([facility]) Extended Individual Psychotherapy - 45 min 07/28/2020 12:00:00 AM EST - 07/28/2020 12:00:00 AM EST [facility] ([facility]) Extended Individual Psychotherapy - 45 min 0 12:00:00 AM EST [facility] ([facility]) TEMPMHCTelemed 30" Psychotherapy 12:00:00 AM EST - 07/06/2020 12:00:00 AM EST [facility] ([facility]) TEMPMHCTelemed 30" Psychotherapy 07/06/2020 12:00:00 A M EST [facility] ([facility]) Brief Individual Psychotherapy - 30 min 06/15/2020 12:00:00 AM EST - 06/15/2020 12:00:00 AM EST [facility] ([facility]) Brief Individual Psychotherapy - 30 min 06/15/2020 12: 00:00 AM EST [facility] ([facility]) [id number]"Psychotherapy 0 12:00:00 AM EDT - 05/11/2020 12:00:00 AM EDT [facility] ([facility]) [id number]"Psychotherapy 05/11/2020 12:00:00 AM EDT [facility] ([facility]) MHC Telemed E/M Lvl 3--Est pt 04/07/2020 12:00:00 AM EDT - 04/07/2020 12:00:00 AM EDT [facility] ([facility]) Telemed A/O 30" 04/07/2020 12:00:00 AM EDT [facility] ([facility]) MHC Telemed E/M Lvl 3--Est pt 04/07/2020 12:00:00 AM E DT [facility] ([facility]) Results ID Date Data Source [id number] 05/19/2020 01:30:00 PM EDT [facility] Measurements & CalculationsHeight: 69 inches [...] seen a dentist? NoIntake performed by: Roxie Landin, May 19, 2020 1:32 PMRate Your HealthIn [...] during this visit, including review of any [id number] medications, herbal therapies, and/or supplements.Allergy ReviewAllergy List [...] Problems:Added: Gastro-esophageal reflux disease without esophagitis (ICD-530.81) (JGQ70-A28.9) Assessment: Instructions: Start omeprazole.Discussed dietary changes and [...] Orders:Adult - Ofc Vst, EST, Level III [CPT-76697] Medications:PRILOSEC OTC 20 MG ORAL TABLET DELAYED RELEASE (OMEPRAZOLE MAGNESIUM) One tablet by mouth every day #30[Tablet] x 2 Route:ORAL Entered and Authorized by: Blue Bateman MD Method used: Electronically to [facility]* (retail) [address] [place] [address] Fax: Note to Pharmacy: Route: ORAL; RxID: [id number] signed by Blue Bateman MD on 05/19/2020 at 2:09 PM Name Value Range Interpretation Code Description Data Jacki rce(s) Supporting Document(s) Procedure Social History Code Duration Value Status Description Data Source(s ) Smoking 02/18/2021 12:00:00 AM EDT Unknown if ever smoked comp leted Unknown if ever smoked [facility] ([facility]) Smoking 01/13/2021 12:00:00 AM EDT Unknown if ever smoked comp leted Unknown if ever smoked [facility] ([facility]) Smoking 09/08/2020 12:00:00 AM EST Unknown if ever smoked comp leted Unknown if ever smoked [facility] ([facility]) Smoking 08/24/2020 12:00:00 AM EST Unknown if ever smoked comp leted Unknown if ever smoked [facility] ([facility]) Smoking 08/13/2020 12:00:00 AM EST Unknown if ever smoked comp leted Unknown if ever smoked [facility] ([facility]) Smoking 07/28/2020 12:00:00 AM EST Unknown if ever smoked comp leted Unknown if ever smoked [facility] ([facility]) Smoking 07/06/2020 12:00:00 AM EST Unknown if ever smoked comp leted Unknown if ever smoked [facility] ([facility]) Smoking 06/15/2020 12:00:00 AM EST Unknown if ever smoked comp leted Unknown if ever smoked [facility] ([facility]) Smoking 05/11/2020 12:00:00 AM EDT Unknown if ever smoked comp leted Unknown if ever smoked [facility] ([facility]) Smoking 04/07/2020 12:00:00 AM EDT Unknown if ever smoked comp leted Unknown if ever smoked [facility] ([facility]) Vital Signs ID Date Data Source UNK Name Value Range Interpretation Code Description Data Source(s) Diastolic blood pressure 79 mm[Hg] 79 mm[Hg] [place] ([facility]) Body height 69 [in_i] 69 [in_i] LOR[place]INE ([facility]) Body mass index (BMI) [Ratio] 22.4 kg/m2 22.4 k g/m2 [facility] ([facility]) Systolic blood pressure 120 mm[Hg] 120 mm[Hg] A THENA ([facility]) Body weight 2424 [oz_av] 2424 [oz_av] [place] ([facility]) Body height 0.00 in Normal (applies to non-numeric resu lts) 0.00 in [facility] ([facility]) Body weight Measured 0.00 lbs Normal (applies to n on-numeric results) 0.00 lbs [facility] ([facility]) Body mass index (BMI) [Ratio] 0.00 kg/m2 No rmal (applies to non-numeric results) 0.00 kg/m2 [facility] ([facility]) Systolic blood pressure 0 mm[Hg] Normal (applies t o non-numeric results) 0 mm[Hg] [facility] ([facility]) Diastolic blood pressure 0 mm[Hg] Normal (applies to non-numeric results) 0 mm[Hg] [facility] ([facility]) Diastolic blood pressure 84 mm[Hg] 84 mm[Hg] [place] ([facility]) Body height 69 [in_i] 69 [in_i] [place] ([facility]) Body mass index (BMI) [Ratio] 38.70 kg/m2 38.70 kg/m2 [place] ([facility]) Systolic blood pressure 125 mm[Hg] 125 mm[Hg] A THENA ([facility]) Body weight 4178.08 [oz_av] 4178.08 [oz_av] ATH DENNIS ([facility]) Body height 0.00 in Normal (applies to non-numeric resu lts) 0.00 in [facility]) Body weight Measured 0.00 lbs Normal (applies to n on-numeric results) 0.00 lbs [facility] ([facility]) Body mass index (BMI) [Ratio] 0.00 kg/m2 No rmal (applies to non-numeric results) 0.00 kg/m2 [facility] ([facility]) Systolic blood pressure 0 mm[Hg] Normal (applies t o non-numeric results) 0 mm[Hg] [facility] ([facility]) Diastolic blood pressure 0 mm[Hg] Normal (applies to non-numeric results) 0 mm[Hg] [facility]) Patient Treatment Plan of Care Planned Activity Planned Date Details Description Data Source (s) Sertraline 50 MG Oral Tablet [place] ([facility]) Sertraline 100 MG Oral Tablet [place]INE ([facility])
--- NOTE | 2021-05-20 14:24 | MHCRPDOC ---
[facility] Consultation Consultation DATE OF CONSULTATION: 05/20/21 CONSULTATION REQUESTED BY: ED team REASON FOR CONSULTATION: Evaluation for hypomania RELEVANT HISTORY: Patient is a 25-year-old male with a history of MDD, PTSD, ADHD, bipolar 2, who [facility], was brought in police after making damage in mother's home in context of argument playing board games, knocked over a shelf, mother had concern that patient not sleeping well, and has increased energy as he went for a long walk. Reports that the trigger for stress is his girlfriend's wellbeing "she has a history of trauma that occurred around this time of year", and he feels it is difficult to support her at times. On interview he states that had to get some stress out, does not appear hypomanic, reports he just has some "anxiety with the situation". States he feels better now that he could cool off and return home, reports gets 6 to 7 hours a least nightly he does not feel he has any racing thoughts, grandiosity, increased risky behavior, denies any symptoms of psychosis including auditory hallucinations, delusions or paranoia or any suicidal ideation, intent or plan, also denies homicidal ideation, intent, or plan. Denies drug use apart from cannabis, reports has not been on medications for months but feels he is doing a lot better, Per PSA report: "Pt states that he has been dealing with a lot lately. His girlfriend is "dealing with some personal stuff" which he declined to share with TW. He states that it's also the anniversary of when she had a miscarriage. Pt states that tonight at [facility] he had a "mental breakdown" & left [facility] & walked several miles home. Pt states that he needed to burn off some steam & had a lot of energy to get out because he was feeling anxious & jittery. He states that when he got home he just wanted to be left alone but his mother would not leave him alone so he yelled at her to "get the fuck away" & then knocked over a camryn okshelf & a chair. Pt denies both SI & HI. He denies any hx of suicide attempts or self-harm. He denies both AH & VH. He does not appear to be psychotic. Pt does c/o depressed mood, anxiety, poor concentration, poor sleep, & erratic appetite. Pt's speech is somewhat rapid & pressured. His TP is somewhat circumstantial. Pt reports a hx of MDD & bipolar d/o with multiple admissions as bot a child & an adult. He does not currently have OP tx & stopped taking his meds in December 2020 because he felt that they were not effective. Pt denies alcohol use. He reports occasional MJ use." PAST PSYCHIATRIC HISTORY: Reports 3 times [facility] as a child, had an admission in January 2017 for suicidal ideation, denies any history of suicide attempts PAST MEDICAL HISTORY: CADE, strabismus of left eye FAMILY HISTORY: Noncontributory PERSONAL AND SOCIAL HISTORY: The patient was born and raised in [place]. Resides in: [place] Marital Status: Has a girlfriend Children: None indicated SUBSTANCE ABUSE HISTORY: Cannabis use LEGAL HISTORY: Denied MENTAL STATUS EXAMINATION: Patient is a 25-year old male, who is in no acute distress, overweight, strabismus left eye, good hygiene, good eye contact, dressed appropriately, appears stated age Speech is normal, nonpressured, spontaneous, patient is talkative and endorses anxieties at times that causes him to talk more Language skills are intact. Thought processes including: Linear and logical. Thought content: Denies suicidal ideation, intent or plan, denies homicidal ideation intent or plan. Abstract reasoning, and computation: Good. Description of associations: Good. Description of abnormal or psychotic thoughts: Denies. Judgment: Good. Insight: Good. Orientation to x3. Recent and remote memory: Intact. Attention span and concentration: Good. Language: Afghan. Fund of knowledge: Average. Mood: "good, doing a lot better, got some stress out". Affect: Euthymic, nonelevated, mild anxiety, mood congruent, appropriate DIAGNOSIS: 1. PTSD, ADHD, MDD per history PLAN: 1. Patient does not meet criteria for involuntary admission at this time, needs a mental health point within 5 days to reevaluate/continue medications, as per safety plan patient should stay with mother until he goes to his next appointment, safety plan should be established so he cannot harm himself or others. Vital Signs Vital Signs Date Time Temp Pulse Resp B/P (MAP) Pulse Ox O2 Delivery O2 Flow Rate FiO2 05/20/21 06:00 97.6 104 20 140/83 (102) 96 Room Air Laboratory Data 24H Labs Laboratory Tests 2 05/20/21 05:51: Nucleated Red Blood Cells % (auto) 0.0, Anion Gap 7L, Glomerular Filtration Rate > 60.0, Calcium Level 9.3, Total Bilirubin 0.3, Direct Bilirubin < 0.1, Aspartate Amino Transf (AST/SGOT) 20, Alanine Aminotransferase (ALT/SGPT) 26, A lkaline Phosphatase 104, Total Protein 8.0, Albumin 3.7, Albumin/Globulin Ratio 0.9, Thyroid Stimulating Hormone (TSH) 1.370, Salicylates Level < 1.7L, Acetaminophen Level < 2.0L, Ethyl Alcohol Level < 0.003 Home Medications Scheduled Aripiprazole (Aripiprazole) 15 Mg Tab, 15 MG PO QHS for Depression Doxycycline Monohydrate (Doxycycline Monohydrate) 100 Mg Capsule, 100 MG PO Q12H Oxcarbazepine (Oxcarbazepine) 150 Mg Tab, 450 MG PO BID for Mood stabilization Sertraline Hcl (Sertraline HCl) 50 Mg Tab, 50 MG PO DAILY for Depression Allergies Coded Allergies: No Known Allergies (Verified , 12/10/04) MARIBEL VILLARREAL MD May 20, 2021 14:24
== END 2021-05-20 09:07 | disposition home or self-care (01) ==
LOC: M ED 01:02
DX: Z04.6 Encounter for general psychiatric examination, requested by authority (principal); F31.81 Bipolar II disorder; F43.10 Post-traumatic stress disorder, unspecified; F90.9 Attention-deficit hyperactivity disorder, unspecified type; F12.90 Cannabis use, unspecified, uncomplicated; E61.1 Iron deficiency; Z79.899 Other long term (current) drug therapy

== ENCOUNTER → 2022-10-06 | Outpatient (REF) | payer OTHER, MEDICAID ==
[~2022-10-06] MED LIST changes: +DOXY-443 PO; -DOXY1CAP62 PO
[2022-10-06 17:15] LABS: BASO % 0.5 % (0.0-1.0); EOS # 0.2 10^3/uL (0.0-0.5); EOS % 3.6 % (0.0-3.0); HEMOGLOBIN 13.5 g/dl (13.5-17.5); LYMPH # 3.2 10^3/uL (1.5-5.0); LYMPH % 52.1 % (24.0-44.0); MEAN CORPUSCULAR HEMOGLOBIN 25.9 pg (27.0-33.0); MEAN CORPUSCULAR HGB CONC 32.1 g/dl (32.0-36.5); MEAN CORPUSCULAR VOLUME 80.5 fl (80.0-96.0); MONO # 0.6 10^3/uL (0.0-0.8); MONO % 9.8 % (2.0-8.0); NEUTROPHILS % 33.7 % (36.0-66.0); PLATELET COUNT, AUTOMATED 265 10^3/uL (150-450); RED BLOOD COUNT 5.22 10^6/uL (4.30-6.10); WHITE BLOOD COUNT 6.1 10^3/uL (4.0-10.0)
[2022-10-06 17:47] LABS: ALBUMIN 3.7 G/DL (3.2-5.2); ALKALINE PHOSPHATASE 103 U/L (46-116); ALT/SGPT 41 U/L (7.0-40); AST/SGOT 28 U/L (<34); BILIRUBIN,TOTAL 0.3 MG/DL (0.3-1.2); BLOOD UREA NITROGEN 20 MG/DL (9-23); CALCIUM LEVEL 8.9 MG/DL (8.5-10.1); CARBON DIOXIDE LEVEL 28 MMOL/L (20-31); CHLORIDE LEVEL 102 MMOL/L (98-107); CHOLESTEROL LEVEL 134 MG/DL (<200); CHOLESTEROL RISK RATIO 3.51 (<5); CREATININE FOR GFR 0.76 MG/DL (0.70-1.30); GLOMERULAR FILTRATION RATE > 60.0 (>60); GLUCOSE, FASTING 90 MG/DL (60-100); HDL CHOLESTEROL 38.1 MG/DL (>40); IRON (FE) 47 UG/DL (65-175); LDL CHOLESTEROL 74.7 MG/DL (<100); NON-HDL-C 96 MG/DL; POTASSIUM SERUM 4.7 MMOL/L (3.5-5.1); SODIUM LEVEL 139 MMOL/L (136-145); TOTAL PROTEIN 7.6 G/DL (5.7-8.2); TRIGLYCERIDES LEVEL 106 MG/DL (<150)
[2022-10-06 17:48] LABS: THYROID STIMULATING HORMONE 1.943 uIU/ML (0.55-4.78)
== END ==
LOC: M LAB REF 16:32
PROVIDERS: ATTEND Family Medicine Addiction Medicine
DX: Z68.38 Body mass index [BMI] 38.0-38.9, adult (principal); D64.9 Anemia, unspecified

== ENCOUNTER → 2023-02-14 | Outpatient (REF) | payer OTHER ==
[2023-02-14 18:22] LABS: BASO % 0.3 % (0.0-1.0); EOS # 0.1 10^3/uL (0.0-0.5); EOS % 2.1 % (0.0-3.0); HEMATOCRIT 41.8 % (42.0-52.0); LYMPH # 3.3 10^3/uL (1.5-5.0); MEAN CORPUSCULAR HEMOGLOBIN 24.9 pg (27.0-33.0); MEAN CORPUSCULAR HGB CONC 31.1 g/dl (32.0-36.5); MEAN CORPUSCULAR VOLUME 79.9 fl (80.0-96.0); MONO # 0.6 10^3/uL (0.0-0.8); MONO % 10.1 % (2.0-8.0); NEUTROPHILS # 2.2 10^3/uL (1.5-8.5); NEUTROPHILS % 34.3 % (36.0-66.0); PLATELET COUNT, AUTOMATED 241 10^3/uL (150-450); RED BLOOD COUNT 5.23 10^6/uL (4.30-6.10); WHITE BLOOD COUNT 6.3 10^3/uL (4.0-10.0)
[2023-02-14 18:48] LABS: IRON (FE) 57 UG/DL (65-175)
[2023-02-14 18:49] LABS: ALBUMIN 3.6 G/DL (3.2-5.2); ALKALINE PHOSPHATASE 107 U/L (46-116); ALT/SGPT 29 U/L (7.0-40); AST/SGOT 18 U/L (<34); BILIRUBIN,TOTAL 0.3 MG/DL (0.3-1.2); BLOOD UREA NITROGEN 23 MG/DL (9-23); CALCIUM LEVEL 9.7 MG/DL (8.5-10.1); CARBON DIOXIDE LEVEL 27 MMOL/L (20-31); CHLORIDE LEVEL 102 MMOL/L (98-107); CHOLESTEROL LEVEL 141 MG/DL (<200); CREATININE FOR GFR 0.73 MG/DL (0.70-1.30); GLOMERULAR FILTRATION RATE > 60.0 (>60); GLUCOSE, FASTING 81 MG/DL (60-100); HDL CHOLESTEROL 38.1 MG/DL (>40); LDL CHOLESTEROL 70.5 MG/DL (<100); NON-HDL-C 102.9 MG/DL; POTASSIUM SERUM 4.4 MMOL/L (3.5-5.1); SODIUM LEVEL 137 MMOL/L (136-145); TOTAL PROTEIN 7.5 G/DL (5.7-8.2); TRIGLYCERIDES LEVEL 162 MG/DL (<150)
[2023-02-14 18:51] LABS: THYROID STIMULATING HORMONE 1.621 uIU/ML (0.55-4.78)
== END ==
LOC: M LAB REF 16:49
PROVIDERS: ATTEND Family Medicine Addiction Medicine
DX: E78.5 Hyperlipidemia, unspecified (principal); D50.9 Iron deficiency anemia, unspecified

== ENCOUNTER → 2023-05-30 | Outpatient (REF) | payer OTHER ==
[2023-05-30 13:18] LABS: IRON (FE) 29 UG/DL (65-175)
[2023-05-30 13:19] LABS: BASO % 0.4 % (0.0-1.0); EOS # 0.3 10^3/uL (0.0-0.5); EOS % 3.9 % (0.0-3.0); HEMATOCRIT 42.4 % (42.0-52.0); HEMOGLOBIN 13.4 g/dl (13.5-17.5); LYMPH # 3.4 10^3/uL (1.5-5.0); MEAN CORPUSCULAR HEMOGLOBIN 25.7 pg (27.0-33.0); MEAN CORPUSCULAR HGB CONC 31.6 g/dl (32.0-36.5); MEAN CORPUSCULAR VOLUME 81.2 fl (80.0-96.0); MONO # 0.6 10^3/uL (0.0-0.8); MONO % 8.7 % (2.0-8.0); NEUTROPHILS # 2.4 10^3/uL (1.5-8.5); NEUTROPHILS % 35.7 % (36.0-66.0); PLATELET COUNT, AUTOMATED 255 10^3/uL (150-450); RED BLOOD COUNT 5.22 10^6/uL (4.30-6.10); WHITE BLOOD COUNT 6.7 10^3/uL (4.0-10.0)
[2023-05-30 13:23] LABS: ALBUMIN 3.6 G/DL (3.2-5.2); ALKALINE PHOSPHATASE 114 U/L (46-116); ALT/SGPT 28 U/L (7.0-40); AST/SGOT 18 U/L (<34); BILIRUBIN,TOTAL 0.2 MG/DL (0.3-1.2); BLOOD UREA NITROGEN 22 MG/DL (9-23); CALCIUM LEVEL 9.1 MG/DL (8.5-10.1); CARBON DIOXIDE LEVEL 30 MMOL/L (20-31); CHLORIDE LEVEL 103 MMOL/L (98-107); CHOLESTEROL LEVEL 141 MG/DL (<200); CHOLESTEROL RISK RATIO 3.73 (<5); CREATININE FOR GFR 0.72 MG/DL (0.70-1.30); GLOMERULAR FILTRATION RATE > 60.0 (>60); GLUCOSE, FASTING 93 MG/DL (60-100); HDL CHOLESTEROL 37.8 MG/DL (>40); NON-HDL-C 103.2 MG/DL; POTASSIUM SERUM 4.3 MMOL/L (3.5-5.1); SODIUM LEVEL 137 MMOL/L (136-145); THYROID STIMULATING HORMONE 2.748 uIU/ML (0.55-4.78); TOTAL PROTEIN 7.7 G/DL (5.7-8.2); TRIGLYCERIDES LEVEL 106 MG/DL (<150)
== END ==
LOC: M LAB REF 12:49
PROVIDERS: ATTEND Family Medicine Addiction Medicine
DX: D64.9 Anemia, unspecified (principal); E78.5 Hyperlipidemia, unspecified

== ENCOUNTER → 2023-11-29 | Outpatient (REF) | payer OTHER ==
[2023-11-29 14:05] LABS: BASO % 0.3 % (0.0-1.0); EOS # 0.1 10^3/uL (0.0-0.5); EOS % 1.5 % (0.0-3.0); HEMATOCRIT 43.2 % (42.0-52.0); HEMOGLOBIN 14.3 g/dl (13.5-17.5); LYMPH # 3.5 10^3/uL (1.5-5.0); LYMPH % 51.6 % (24.0-44.0); MEAN CORPUSCULAR HGB CONC 33.1 g/dl (32.0-36.5); MEAN CORPUSCULAR VOLUME 84.5 fl (80.0-96.0); MONO # 0.6 10^3/uL (0.0-0.8); MONO % 8.9 % (2.0-8.0); NEUTROPHILS # 2.5 10^3/uL (1.5-8.5); NEUTROPHILS % 37.4 % (36.0-66.0); PLATELET COUNT, AUTOMATED 252 10^3/uL (150-450); RED BLOOD COUNT 5.11 10^6/uL (4.30-6.10); WHITE BLOOD COUNT 6.7 10^3/uL (4.0-10.0)
== END ==
LOC: M LAB REF 11:52
PROVIDERS: ATTEND Family Medicine Addiction Medicine
DX: D50.9 Iron deficiency anemia, unspecified (principal)

== ENCOUNTER → 2023-12-12 | Outpatient (CLI) | payer OTHER ==
[~2023-12-12] MED LIST changes: +DOXY-323 PO; -DOXY-443 PO
== END ==
LOC: M PLAIMG 08:38
PROVIDERS: ATTEND Family Medicine Addiction Medicine
DX: M25.561 Pain in right knee (principal)

== ENCOUNTER → 2024-08-15 | Outpatient (REF) | payer OTHER ==
[~2024-08-15] MED LIST changes: -DOXY-323 PO; +DOXY-441 PO
[2024-08-15 14:17] LABS: BASO % 0.5 % (0.0-1.0); EOS # 0.2 10^3/uL (0.0-0.5); EOS % 3.4 % (0.0-3.0); HEMATOCRIT 41.6 % (42.0-52.0); HEMOGLOBIN 13.5 g/dl (13.5-17.5); LYMPH # 3.2 10^3/uL (1.5-5.0); LYMPH % 51.8 % (24.0-44.0); MEAN CORPUSCULAR HEMOGLOBIN 26.9 pg (27.0-33.0); MEAN CORPUSCULAR HGB CONC 32.5 g/dl (32.0-36.5); MONO # 0.6 10^3/uL (0.0-0.8); MONO % 9.6 % (2.0-8.0); NEUTROPHILS # 2.1 10^3/uL (1.5-8.5); NEUTROPHILS % 34.5 % (36.0-66.0); PLATELET COUNT, AUTOMATED 257 10^3/uL (150-450); RED BLOOD COUNT 5.01 10^6/uL (4.30-6.10); WHITE BLOOD COUNT 6.1 10^3/uL (4.0-10.0)
[2024-08-15 14:19] LABS: THYROID STIMULATING HORMONE 1.614 uIU/ML (0.55-4.78)
[2024-08-15 14:35] LABS: ALBUMIN 3.8 G/DL (3.2-5.2); ALKALINE PHOSPHATASE 115 U/L (40-129); ALT/SGPT 26 U/L (7.0-40); AST/SGOT 19 U/L (<34); BILIRUBIN,TOTAL 0.3 MG/DL (0.3-1.2); BLOOD UREA NITROGEN 26 MG/DL (9-23); CALCIUM LEVEL 9.2 MG/DL (8.5-10.1); CARBON DIOXIDE LEVEL 27 MMOL/L (20-31); CHLORIDE LEVEL 104 MMOL/L (98-107); CHOLESTEROL LEVEL 140 MG/DL (<200); CHOLESTEROL RISK RATIO 4.43 (<5); CREATININE FOR GFR 0.79 MG/DL (0.70-1.30); GLOMERULAR FILTRATION RATE > 60.0 (>60); GLUCOSE, FASTING 98 MG/DL (60-100); HDL CHOLESTEROL 31.6 MG/DL (>40); IRON (FE) 59 UG/DL (65-175); LDL CHOLESTEROL 80.6 MG/DL (<100); NON-HDL-C 108.4 MG/DL; SODIUM LEVEL 139 MMOL/L (136-145); TOTAL PROTEIN 7.9 G/DL (5.7-8.2); TRIGLYCERIDES LEVEL 139 MG/DL (<150)
== END ==
LOC: M LAB REF 12:27
PROVIDERS: ATTEND Family Medicine Addiction Medicine
DX: E66.3 Overweight (principal); D64.9 Anemia, unspecified

== ENCOUNTER → 2025-03-18 | Outpatient (REF) | payer OTHER ==
[2025-03-18 14:40] LABS: BASO # 0.0 10^3/uL (0.0-0.2); BASO % 0.3 % (0.0-1.0); EOS # 0.1 10^3/uL (0.0-0.5); EOS % 1.3 % (0.0-3.0); LYMPH # 3.6 10^3/uL (1.5-5.0); LYMPH % 47.3 % (24.0-44.0); MONO # 0.6 10^3/uL (0.0-0.8); MONO % 7.8 % (2.0-8.0); NEUTROPHILS # 3.3 10^3/uL (1.5-8.5); NEUTROPHILS % 43.0 % (36.0-66.0); PLATELET COUNT, AUTOMATED 249 10^3/uL (150-450)
== END ==
LOC: M LAB REF 14:17
PROVIDERS: ATTEND Family Medicine Addiction Medicine
DX: D64.9 Anemia, unspecified (principal)